=== PATIENT | male | born 1980 | race Hispanic/Latino ===

== ENCOUNTER 2017-12-06 19:40 | Inpatient (IN) | payer MEDICAID ==
[2017-12-06] MEDS ORDERED: Sodium Chloride 0.9% 1,000 ML IV STA (20:21)
[2017-12-06] MEDS ORDERED: Morphine 4 MG/ML VIAL ONE (20:49)
--- NOTE | 2017-12-06 20:53 | ED PDOC ---
Lower Extremity Pain/Injury Time Seen by Provider: 12/06/17 19:52 Chief Complaint (Nursing): GI Problem Chief Complaint (Provider): Lower Extremity Problem/Injury History Per: Patient History/Exam Limitations: no limitations Onset/Duration Of Symptoms: Days Current Symptoms Are (Timing): Still Present Additional Complaint(s): Angelito Lundy is a 37 year old male with a past medical history of PTSD who is presenting to the ED for evaluation of leg pain s/p sustaining a wound to the left leg on November 24. Patient states that he got injured by a piece of wood from an old house in [place] and presented to the ED in [facility], where he was diagnosed with a contusion. However, he reports that the pain and swelling got worse and he came to this area for a concert but presented to [facility] on December 03 due to sever leg pain. There he was diagnosed with an abscess and cellulitis, and on the he underwent surgery to drain the abscess. He adds that he was discharged today and states that while he was waiting for a homeless fdc to open, he started experiencing severe nausea, chills, shakes, and sweats, along with pins and needles all over his body. Ibrahima zaman reports that he was concerned that he was going through an opiate withdrawal as he was given Dilaudid around the clock at [facility]. He also reports increased leg pain and swelling. Denies chest pain or shortness of breath Reports last tetanus vaccine was 6 months ago PMD: none provided Past Medical History Reviewed: Historical Data, Nursing Documentation, Vital Signs Vital Signs: Last Vital Signs Temp 96.7 F L 12/06/17 19:41 Pulse 105 H 12/06/17 19:41 Resp 16 12/06/17 19:41 BP 141/81 12/06/17 19:41 Pulse Ox 100 12/06/17 19:41 - Medical History PMH: No Chronic Diseases - Surgical History Other surgeries: Abscess I&D, left ankle surgery - Family History Family History: States: Unknown Family Hx - Social History Current smoker - smoking cessation education provided: Yes Alcohol: Social Drugs: Cannabis - Home Medications Home Medications: Ambulatory Orders Medication Instructions Recorded RX: Cefdinir [Omnicef] 300 mg PO BID 12/07/17 RX: traMADol [Ultram] 50 mg PO Q6H PRN 12/07/17 Sulfamethoxazole/Trimethoprim 160 - 800 mg PO BID 12/07/17 [Bactrim DS Tab] - Allergies Allergies/Adverse Reactions: Allergies Allergy/AdvReac Type Severity Reaction Status Date / Time No Known Allergies Allergy Verified 12/06/17 19:41 Review of Systems ROS Statement: Except As Marked, All Systems Reviewed And Found Negative Constitutional: Positive for: Chills, Sweats, Other (shakes) Gastrointestinal: Positive for: Nausea Musculoskeletal: Positive for: Leg Pain (and swelling ) Neurological: Positive for: Other (pins and needles) Physical Exam - Reviewed Nursing Documentation Reviewed: Yes Vital Signs Reviewed: Yes - Physical Exam Appears: Positive for: Non-toxic, In Acute Distress (mild painful, tired appearing) Skin: Positive for: Warm, Dry ENT: Positive for: Pharynx Is (clear), Other (dry muscous membranes) Neck: Positive for: Painless ROM, Supple Cardiovascular/Chest: Positive for: Regular Rate, Rhythm. Negative for: Murmur Respiratory: Positive for: Normal Breath Sounds. Negative for: Respiratory Distress Gastrointestinal/Abdominal: Positive for: Soft. Negative for: Tenderness Back: Positive for: Normal Inspection. Negative for: Decreased ROM Extremity: Positive for: Pedal Edema, Swelling, Other (Left Lower Leg: vertical scar with interrupted sutures proximal to anterior tibia area with edema extending from proximal knee to foot: ecchymosis to ankle and foot; irregular spaced eschar, dark maroon to middle of wound; removal of iodoform gauze- wound started to moderately ooze dark red exudate, controlled with pressure) Lymphatic: Negative for: Adenopathy Neurologic/Psych: Positive for: Alert - Laboratory Results Result Diagrams: 12/07/17 09:30 12/07/17 09:30 - ECG O2 Sat by Pulse Oximetry: 100 (RA) Pulse Ox Interpretation: Normal Medical Decision Making Medical Decision Making: Time: 20:21 Impression: leg pain, s/p abscess incision and drainage secondary to traumatic wound infection Plan: --Blood Type and Screen --VBG Shock Panel --CMP --Creatine Phosphokinase --CRP --Drug Screen --CBC --Erythrocyte sedimentation --Coag --Morphine 4 mg IVP --IV Fluids --Zofran 8 mg IV --Blood Culture --X-Ray Tibia Fibula --Ultrasound Lower Extremity 22:36 Labs demonstrate leukocytosis, elevated lactic acid, and elevated ESR. Findings consistent with infection and early sepsis, Iv abx ordered. Patient to be hospitalized for further management. Discussed with Dr. Cadet, medical service. Discussed with Dr. Lay, surgical assistant certified, for Dr. Ramirez. 22:41 Lower Extremity US IMPRESSION: Findings compatible with acute DVT in the left PTV. Lovenox ordered. Scribe Attestation: Documented by Emmie Davis, acting as a scribe for Inez Prater MD. Provider Scribe Attestation: All medical record entries made by the Scribe were at my direction and personally dictated by me. I have reviewed the chart and agree that the record accurately reflects my personal performance of the history, physical exam, medi paula decision making, and the department course for this patient. I have also personally directed, reviewed, and agree with the discharge instructions and disposition. Disposition - Clinical Impression Clinical Impression: DVT (deep venous thrombosis), Infection of hematoma of wound - Disposition Disposition Time: 22:00 Condition: GUARDED - Pt Status Changed To: Hospital Disposition Of: Inpatient - Admit Certification Admit to Inpatient:: After my assessment, the patient will require hospitalization for at least two midnights. This is because of the severity of symptoms shown, intensity of services needed, and/or the medical risk in this patient being treated as an outpatient. - POA Present On Arrival: Surgical Site Infection, Deep Vein Thrombosis / PE
[2017-12-06] MEDS ORDERED: Morphine 4 MG/ML VIAL IVP STA (21:19)
[2017-12-06 21:29] LABS: VENOUS BLOOD GAS BASE EXCESS 2.2 mmol/L (0.0-2.0); VENOUS BLOOD GAS PCO2 46 mmHg (40-60); VENOUS BLOOD GAS PO2 25 mm/Hg (30-55); VENOUS BLOOD PH 7.39 (7.32-7.43)
[2017-12-06 21:33] LABS: BASO # 0.1 K/uL (0.0-0.2); BASO % 0.8 % (0.0-2.0); EOS # 0.2 K/uL (0.0-0.7); EOS % 1.6 % (0.0-4.0); HEMOGLOBIN 14.9 g/dL (12.0-18.0); LYMPH # 1.8 K/uL (1.0-4.3); LYMPH % 13.3 % (20.0-40.0); MEAN CELL VOLUME 91.8 fl (80.0-94.0); MEAN CORPUSCULAR HEMOGLOBIN 31.2 pg (27.0-31.0); MONO # 0.9 K/uL (0.0-0.8); MONO % 6.8 % (0.0-10.0); NEUT # 10.4 K/uL (1.8-7.0); NEUT % 77.5 % (50.0-75.0); RBC 4.76 Mil/uL (4.40-5.90); RED CELL DISTRIBUTION WIDTH 13.1 % (11.5-14.5); WHITE BLOOD COUNT 13.5 K/uL (4.8-10.8)
[2017-12-06 21:43] LABS: BLOOD UREA NITROGEN 17 mg/dl (9-20); CALCIUM 10.1 mg/dL (8.4-10.2); GFR NON-AFRICAN AMERICAN > 60
[2017-12-06 21:50] LABS: INR 1.1; PROTHROMBIN TIME 12.3 Seconds (9.8-13.1)
[2017-12-06 21:53] LABS: PARTIAL THROMBOPLASTIN TIME 29.1 Seconds (25.6-37.1)
[2017-12-06 21:56] LABS: ALBUMIN 4.4 g/dL (3.5-5.0); ALT/SGPT 99 U/L (21-72); AST/SGOT 71 U/L (17-59)
[2017-12-06] MEDS ORDERED: Piperacillin/Tazobact 3.375 GM in Sodium Chloride 0.9% 100 ML IVPB STA (22:26)
[2017-12-06] MEDS ORDERED: Enoxaparin 100 mg Syringe SC STA (22:53)
--- NOTE | 2017-12-06 23:28 | CP.PCM.CON ---
History of Present Illness - History of Present Illness History of Present Illness: General surgery consult note for Dr. Vicky Lay, PGY-2 Pt S & E at bedside at 2240 37M w/PMH sig for chronic migraines consulted for LLE wound infection s/p I & D (12/04). Pt reports injury to anterior aspect of LLE attempting to jump onto wooden deck on 11/24 in [place], evaluated - diagnosed with contusion. Came to [place], re-evaluated, found to have abscess, had I & D at [facility] on 12/04 with drain placement. Pt was being treated with IV Abx and pain medications, discharged to [facility] on day of evaluation with crutches after drain removed. Pt reports diaphoresis, N, F & C, increasedLLE pain, SOB, pins/needles sensation, and near syncope while at [facility]- brought into ED for evaluation. Dressing removed by ED attending with findings of sero-purulent drainage. Additionally admits to sore throat since OR, chronic vision changes, chronic ANTUNEZ, occasional CP. Denies changes in bowel or bladder habits, current N or V, chills, other complaints. In ED- LE U/S + for DVT, sero-purulent drainage from distal aspect of incision site. Afebrile, but tachycardic- 105, Leukocytosis 13.5. Thrombocytosis - 648. ESR elevated at 60. Hyperkalemic - 5.7. Tetanus vaccine 6 mos ago. 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 Review of Systems - Review of Systems All systems: reviewed and no additional remarkable complaints except - Constitutional Constitutional: Chills, Fever, Headache (chronic), Weakness - EENT Eyes: Change in Vision (chronic) Ears: Dizziness (near) Nose/Mouth/Throat: Sore Throat - Cardiovascular Cardiovascular: Chest Pain (occasional) - Gastrointestinal Gastrointestinal: absent: Abdominal Pain, Constipation, Diarrhea, Hematemesis, Hematochezia, Melena, Nausea, Vomiting - Genitourinary Genitourinary: absent: Change in Urinary Stream, Dysuria, Hematuria - Musculoskeletal Musculoskeletal: Numbness (LLE), Tingling (LLE) - Integumentary Integumentary: Wounds (draining LLE incision site) - Neurological Neurological: Weakness - Endocrine Endocrine: Fatigue Past Patient History - Past Social History Alcohol: Social Drugs: Cannabis Meds Allergies/Adverse Reactions: Allergies Allergy/AdvReac Type Severity Reaction Status Date / Time No Known Allergies Allergy Verified 12/06/17 19:41 - Medications Medications: Current Medications Vancomycin HCl 1 gm/ Sodium (Chloride) 250 mls @ 166.667 mls/hr IV STAT STA; Protocol Stop: 12/06/17 23:55 Physical Exam - Constitutional Appears: Non-toxic, No Acute Distress - Head Exam Head Exam: ATRAUMATIC, NORMAL INSPECTION, NORMOCEPHALIC - Eye Exam Eye Exam: EOMI, Normal appearance - ENT Exam ENT Exam: Mucous Membranes Moist, Normal Exam - Neck Exam Neck exam: Positive for: Full Rom, Normal Inspection - Respiratory Exam Respiratory Exam: Clear to Auscultation Bilateral, NORMAL BREATHING PATTERN. absent: Rales, Rhonchi, Wheezes, Respiratory Distress - Cardiovascular Exam Cardiovascular Exam: REGULAR RHYTHM, +S1, +S2 - GI/Abdominal Exam GI & Abdominal Exam: Normal Bowel Sounds, Soft. absent: Distended, Firm, Guarding, Tenderness - Extremities Exam Extremities exam: Positive for: tenderness (LLE). Negative for: normal inspection (8cm incision on anterior lateral aspect of left leg with freely draining sero-purulent drainage, tender to palpation, sutures in place along incision, ecchymoses on lateral aspect of medial malleous) - Neurological Exam Neurological exam: Alert, CN II-XII Intact, Oriented x3 - Psychiatric Exam Psychiatric exam: Normal Affect, Normal Mood - Skin Skin Exam: Dry, Warm Additional comments: cellulitis over incision site of left lower leg Results - Vital Signs Recent Vital Signs: Last Vital Signs Temp 96.7 F L 12/06/17 19:41 Pulse 105 H 12/06/17 19:41 Resp 16 12/06/17 19:41 BP 141/81 12/06/17 19:41 Pulse Ox 100 12/06/17 22:54 - Labs Result Diagrams: 12/06/17 21:26 12/06/17 21:26 Labs: Laboratory Results - last 24 hr 12/06/17 12/06/17 12/06/17 21:10 21:26 21:26 WBC 13.5 H RBC 4.76 Hgb 14.9 Hct 43.7 MCV 91.8 MCH 31.2 H MCHC 34.0 RDW 13.1 Plt Count 648 H MPV 7.0 L Neut % (Auto) 77.5 H Lymph % (Auto) 13.3 L Nance % (Auto) 6.8 Eos % (Auto) 1.6 Baso % (Auto) 0.8 Neut # (Auto) 10.4 H Lymph # (Auto) 1.8 Nance # (Auto) 0.9 H Eos # (Auto) 0.2 Baso # (Auto) 0.1 ESR 60 H PT INR APTT pO2 25 L VBG pH 7.39 VBG pCO2 46 VBG HCO3 25.2 VBG Total CO2 29.2 H VBG O2 Sat (Calc) 45.8 VBG Base Excess 2.2 H VBG Potassium 4.0 Sodium 136.0 139 Chloride 101.0 102 Glucose 119 H Lactate 2.1 FiO2 21.0 Potassium 5.7 H Carbon Dioxide 26 Anion Gap 17 BUN 17 Creatinine 0.8 Est GFR ( Amer) > 60 Est GFR (Non-Af Amer) > 60 Random Glucose 116 H Calcium 10.1 Total Bilirubin 0.8 AST 71 H ALT 99 H Alkaline Phosphatase 47 Total Creatine Kinase 41 L Total Protein 8.7 H Albumin 4.4 Globulin 4.2 H Albumin/Globulin Ratio 1.0 Venous Blood Potassium 4.0 12/06/17 21:26 WBC RBC Hgb Hct MCV MCH MCHC RDW Plt Count MPV Neut % (Auto) Lymph % (Auto) Nance % (Auto) Eos % (Auto) Baso % (Auto) Neut # (Auto) Lymph # (Auto) Nance # (Auto) Eos # (Auto) Baso # (Auto) ESR PT 12.3 INR 1.1 APTT 29.1 pO2 VBG pH VBG pCO2 VBG HCO3 VBG Total CO2 VBG O2 Sat (Calc) VBG Base Excess VBG Potassium Sodium Chloride Glucose Lactate FiO2 Potassium Carbon Dioxide Anion Gap BUN Creatinine Est GFR ( Amer) Est GFR (Non-Af Amer) Random Glucose Calcium Total Bilirubin AST ALT Alkaline Phosphatase Total Creatine Kinase Total Protein Albumin Globulin Albumin/Globulin Ratio Venous Blood Potassium Assessment & Plan - Assessment and Plan (Free Text) Assessment: 37M w/LLE abscess s/p I & D POD#2 freely draining Plan: Warm compresses to area Pain control IV ABx dressing care Local wound care Removed 2 sutures from distal aspect of incision DVT mgmt as per primary team No further surgical intervention at this time- wound drains freely DW Dr. James Lay, PGY-2 - Date & Time Date: 12/06/17 Time: 23:46
[2017-12-07] MEDS ORDERED: Vancomycin 1 g Inj ONE (01:14)
[2017-12-07] MEDS ORDERED: Piperacillin/Tazobact 3.375 gm Inj IVPB ONE (01:14)
--- NOTE | 2017-12-07 07:41 | CP.PCM.PN ---
Subjective - Date & Time of Evaluation Date of Evaluation: 12/07/17 Time of Evaluation: 07:39 - Subjective Subjective: General Surgery Progress Note for Dr. Ramirez 37 year old male seen and evaluated at bedside. Patient resting comfortably in bed. Left leg pain is present with ambulation. Packing and dressing changed at bedside. Denies fever, chills, nausea, vomiting, headache, dizziness, shortness of breath, chest pain, or urinary symptoms. Objective - Vital Signs/Intake and Output Vital Signs (last 24 hours): Temp Pulse Resp BP Pulse Ox 97.6 F 65 18 122/78 99 12/07/17 05:42 12/07/17 05:42 12/07/17 06:18 12/07/17 05:42 12/07/17 06:18 - Medications Medications: Current Medications Enoxaparin Sodium (Lovenox) 90 mg SC Q12 KOFFI; Protocol Piperacillin Sod/Tazobactam (Sod 3.375 gm/ Sodium Chloride) 100 mls @ 100 mls/hr IVPB Q6 KOFFI; Protocol Vancomycin HCl 1 gm/ Sodium (Chloride) 250 mls @ 166.667 mls/hr IVPB Q12 OKFFI; Protocol Morphine Sulfate (Morphine) 4 mg IVP Q4 PRN PRN Reason: Pain, severe (8-10) Ondansetron HCl (Zofran Inj) 4 mg IVP Q4 PRN PRN Reason: Nausea/Vomiting - Labs Labs: 12/06/17 21:26 12/07/17 00:05 PT 12.3 Seconds (9.8-13.1) 12/06/17 21:26 INR 1.1 12/06/17 21:26 APTT 29.1 Seconds (25.6-37.1) 12/06/17 21:26 - Constitutional Appears: Well, Non-toxic, No Acute Distress - Head Exam Head Exam: ATRAUMATIC, NORMAL INSPECTION, NORMOCEPHALIC - Respiratory Exam Respiratory Exam: Clear to Ausculation Bilateral, NORMAL BREATHING PATTERN - Cardiovascular Exam Cardiovascular Exam: REGULAR RHYTHM, +S1, +S2. absent: Murmur - Extremities Exam Extremities Exam: Calf Tenderness Additional comments: left lower extremity incision clean, dry Erythematous, tender to palpation Dressings and packing changed - Neurological Exam Neurological Exam: Alert, Awake, CN II-XII Intact, Normal Gait, Oriented x3 - Skin Skin Exam: Erythema Assessment and Plan - Assessment and Plan (Free Text) Assessment: 37M w/LLE abscess s/p I & D POD#3 freely draining Plan: Continue warm compresses Continue Pain control Continue IV ABx Continue loose packing + dressing changes 2x/day DVT mgmt as per primary team Further recommendations per Dr. James Keen PGY1
--- NOTE | 2017-12-07 08:19 | US ---
Date of service: 12/06/2017 HISTORY: leg swelling. PRIORS: None. FINDINGS: 2-D, color and duplex Doppler analysis of the lower extremity venous circulation using routine protocol from the femoral veins through the popliteal veins. Venous compressibility: Normal compressibility from the left common femoral vein to the left popliteal vein. Flow and augmentation patterns: Normal flow from the left common femoral vein to the left popliteal vein. Visualized veins upper third of calf: There is evidence of lack of flow and noncompressibility of the left posterior tibial vein consistent with thrombus. Stafford cyst: None. IMPRESSION: Lack of flow and noncompressibility of the left posterior tibial vein consistent with thrombus. This agrees with preliminary report.
--- NOTE | 2017-12-07 09:11 | CARD ---
APPROVED REPORT Date of service: 12/07/2017 EKG Measurement Heart [id number] MA 148P1 [id number] <Conclusion> Normal sinus rhythm Cannot rule out Inferior infarct, age undetermined Abnormal ECG
[2017-12-07 09:57] LABS: HEMOGLOBIN 13.9 g/dL (12.0-18.0); MEAN CELL VOLUME 91.5 fl (80.0-94.0); MEAN CORPUSCULAR HEMOGLOBIN 30.8 pg (27.0-31.0); MEAN CORPUSCULAR HGB CONC 33.6 g/dL (33.0-37.0); RBC 4.53 Mil/uL (4.40-5.90); WHITE BLOOD COUNT 9.2 K/uL (4.8-10.8)
[2017-12-07] MEDS: Piperacillin/Tazobact 3.375 GM in Sodium Chloride 0.9% 100 ML IVPB SCH ×3 (10:10→21:26)
[2017-12-07] MEDS: Morphine 4 MG/ML VIAL IVP PRN ×2 (10:24→18:44)
[2017-12-07 10:33] LABS: ALB/GLOB RATIO 1.1 (1.0-2.1); ALBUMIN 3.7 g/dL (3.5-5.0); ALT/SGPT 74 U/L (21-72); AST/SGOT 38 U/L (17-59); BLOOD UREA NITROGEN 14 mg/dl (9-20); CALCIUM 9.1 mg/dL (8.4-10.2); GFR NON-AFRICAN AMERICAN > 60; T4 10.5 ug/dl (5.5-11.0)
--- NOTE | 2017-12-07 10:48 | RAD ---
Date of service: 12/06/2017 HISTORY: wound infection COMPARISON: No prior. FINDINGS: LUNGS: No active pulmonary disease. PLEURA: No significant pleural effusion identified, no pneumothorax apparent. CARDIOVASCULAR: Normal. OSSEOUS STRUCTURES: No significant abnormalities. VISUALIZED UPPER ABDOMEN: Normal. OTHER FINDINGS: None. IMPRESSION: No active disease.
--- NOTE | 2017-12-07 10:51 | RAD ---
Date of service: 12/06/2017 PROCEDURE: Radiographs of the left tibia and fibula. HISTORY: LEFT leg pain recent abscess anterior COMPARISON: None available. TECHNIQUE: Frontal and lateral views obtained. FINDINGS: BONES: No appreciable fracture is seen. No periosteal reaction is noted. No bone destruction is seen. There is evidence of prior lower leg ORIF of the distal left tibia. Left knee is unremarkable. JOINT SPACES: Unremarkable. OTHER FINDINGS: There is nonspecific soft tissue swelling in the medial knee and proximal anterior lower leg region with a few small air bubbles identified. Finding could be related to abscess or other infectious process such as cellulitis. Gas-forming organism cannot be excluded on the images presented. IMPRESSION: No bony irregularity to suggest fracture or osteomyelitis. Nonspecific soft tissue swelling and air in the superior aspect of the left lower leg and medial aspect of the knee. Once again abscess formation and/or cellulitis with gas-forming organism cannot fully be excluded.
[2017-12-07] MEDS: Enoxaparin 100 mg Syringe SC SCH ×2 (11:37→21:25)
--- NOTE | 2017-12-07 14:48 | CP.PCM.HP ---
History of Present Illness - History of Present Illness History of Present Illness: CC: Left lower leg pain/ Abscess. 37 y/o M, PMHx Migraine,brought on 12/06/17 to [facility] for evaluation of LLE infection, associated to swelling and pain in area, pain described as constant, severe intensity 8-10: 10 with no relief. Pt sustained an I&D in [facility] on 12/04/17, 2nd to fall and contusion on 11/24/17, developing abscess in the area (as per Pt). While in [facility], Pt was Tx with abx and pain medication, discharged with crutches after drainage was removed. Worsening symptoms: On evaluation in the ER, dressing was removed and Pt was found with sero-purulent drainage from distal aspect of incision site. Also found with DVT LLE on Ext.U-S. Aggravated factor: Walking/left leg movements. Pt denied: Fever, chills, n/v/d, abdominal pain, urinary symptoms, CP, headache, SOB, cough, sick contact, recent travel out of [facility]. Left Tibia Fibula X Ray: No Fx or Osteomyelitis. Left lower leg abscess. CXR: No active disease. EKG: Normal sinus rhythm. Present on Admission - Present on Admission Any Indicators Present on Admission: Yes History of DVT/PE: Yes Review of Systems - Constitutional Constitutional: Other (negative) - EENT Eyes: Change in Vision (chronic) Ears: Other (negative) Nose/Mouth/Throat: Other (negative) - Cardiovascular Cardiovascular: Other (negative) - Respiratory Respiratory: Other (negative) - Gastrointestinal Gastrointestinal: Other (negative) - Genitourinary Genitourinary: Other (negative) - Musculoskeletal Musculoskeletal: Other (LLE pain) - Integumentary Integumentary: Wounds (LLE, draining incision site.) - Neurological Neurological: Other (negative) - Psychiatric Psychiatric: Other (negative) - Endocrine Endocrine: Other (negative) - Hematologic/Lymphatic Hematologic: Other (negative) Past Patient History - Past Medical History & Family History Past Medical History?: No Pertinent Family History: Unknown - Past Social History Smoking Status: Current Some Days Smoker Alcohol: Social Drugs: Cannabis Home Situation {Lives}: Homeless - CARDIAC Hx Cardiac Disorders: No - PULMONARY Hx Respiratory Disorders: No - NEUROLOGICAL Hx Neurological Disorder: Yes Hx Migraine: Yes - HEENT Hx HEENT Problems: No - RENAL Hx Chronic Kidney Disease: No - ENDOCRINE/METABOLIC Hx Endocrine Disorders: No - HEMATOLOGICAL/ONCOLOGICAL Hx Blood Disorders: No - INTEGUMENTARY Hx Dermatological Problems: No - MUSCULOSKELETAL/RHEUMATOLOGICAL Hx Musculoskeletal Disorders: Yes Hx Falls: Yes - GASTROINTESTINAL Hx Gastrointestinal Disorders: No - GENITOURINARY/GYNECOLOGICAL Hx Genitourinary Disorders: No - PSYCHIATRIC Hx Substance Use: Yes (marijuana) - SURGICAL HISTORY Hx Surgeries: Yes Other/Comment: left ankle surgery - ANESTHESIA Hx Anesthesia: Yes Hx Anesthesia Reactions: No Meds Allergies/Adverse Reactions: Allergies Allergy/AdvReac Type Severity Reaction Status Date / Time No Known Allergies Allergy Verified 12/06/17 19:41 Physical Exam - Constitutional Appears: No Acute Distress - Head Exam Head Exam: NORMAL INSPECTION - Eye Exam Eye Exam: PERRL - ENT Exam ENT Exam: Mucous Membranes Moist - Neck Exam Neck exam: Positive for: Normal Inspection - Respiratory Exam Respiratory Exam: Clear to Auscultation Bilateral - Cardiovascular Exam Cardiovascular Exam: REGULAR RHYTHM - GI/Abdominal Exam GI & Abdominal Exam: Normal Bowel Sounds, Soft - Extremities Exam Extremities exam: Positive for: tenderness (on palpation LLE) Additional comments: Incision on anterior lateral aspect of Left leg with sero-purulent drainage. sutures in place, ecchymosis lateral aspect of medial malleous - Back Exam Back exam: NORMAL INSPECTION - Neurological Exam Neurological exam: Alert, CN II-XII Intact, Oriented x3 - Psychiatric Exam Psychiatric exam: Normal Affect, Normal Mood - Skin Skin Exam: Warm Additional comments: See extremity. Results - Vital Signs Recent Vital Signs: Last Vital Signs Temp 97.9 F 12/07/17 12:39 Pulse 78 12/07/17 12:39 Resp 16 12/07/17 12:39 BP 145/73 12/07/17 12:39 Pulse Ox 98 12/07/17 12:39 reviewed Gil - Labs Result Diagrams: 12/07/17 09:30 12/07/17 09:30 Labs: Laboratory Results - last 24 hr 12/06/17 12/06/17 12/06/17 11:53 21:10 21:26 WBC 13.5 H RBC 4.76 Hgb 14.9 Hct 43.7 MCV 91.8 MCH 31.2 H MCHC 34.0 RDW 13.1 Plt Count 648 H MPV 7.0 L Neut % (Auto) 77.5 H Lymph % (Auto) 13.3 L [place] % (Auto) 6.8 Eos % (Auto) 1.6 Baso % (Auto) 0.8 Neut # (Auto) 10.4 H Lymph # (Auto) 1.8 [place] # (Auto) 0.9 H Eos # (Auto) 0.2 Baso # (Auto) 0.1 ESR 60 H PT INR APTT pO2 25 L VBG pH 7.39 VBG pCO2 46 VBG HCO3 25.2 VBG Total CO2 29.2 H VBG O2 Sat (Calc) 45.8 VBG Base Excess 2.2 H VBG Potassium 4.0 Sodium 136.0 Chloride 101.0 Glucose 119 H Lactate 2.1 FiO2 21.0 Potassium Carbon Dioxide Anion Gap BUN Creatinine Est GFR ( Amer) Est GFR (Non-Af Amer) Random Glucose Calcium Total Bilirubin AST ALT Alkaline Phosphatase Total Creatine Kinase Total Protein Albumin Globulin Albumin/Globulin Ratio Thyroxine (T4) TSH 3rd Generation Venous Blood Potassium 4.0 Blood Type A POSITIVE Blood Type Confirm Antibody Screen Negative BBK History Checked No verified bt 12/06/17 12/06/17 12/07/17 21:26 21:26 00:05 WBC RBC Hgb Hct MCV MCH MCHC RDW Plt Count MPV Neut % (Auto) Lymph % (Auto) [place] % (Auto) Eos % (Auto) Baso % (Auto) Neut # (Auto) Lymph # (Auto) [place] # (Auto) Eos # (Auto) Baso # (Auto) ESR PT 12.3 INR 1.1 APTT 29.1 pO2 VBG pH VBG pCO2 VBG HCO3 VBG Total CO2 VBG O2 Sat (Calc) VBG Base Excess VBG Potassium Sodium 139 Chloride 102 Glucose Lactate FiO2 Potassium 5.7 H 3.9 Carbon Dioxide 26 Anion Gap 17 BUN 17 Creatinine 0.8 Est GFR ( Amer) > 60 Est GFR (Non-Af Amer) > 60 Random Glucose 116 H Calcium 10.1 Total Bilirubin 0.8 AST 71 H ALT 99 H Alkaline Phosphatase 47 Total Creatine Kinase 41 L Total Protein 8.7 H Albumin 4.4 Globulin 4.2 H Albumin/Globulin Ratio 1.0 Thyroxine (T4) TSH 3rd Generation Venous Blood Potassium Blood Type Blood Type Confirm Antibody Screen BBK History Checked 12/07/17 12/07/1718 06:54 09:30 09:30 WBC 9.2 RBC 4.53 Hgb 13.9 Hct 41.4 MCV 91.5 MCH 30.8 MCHC 33.6 RDW 13.0 Plt Count 635 H MPV Neut % (Auto) Lymph % (Auto) [place] % (Auto) Eos % (Auto) Baso % (Auto) Neut # (Auto) Lymph # (Auto) [place] # (Auto) Eos # (Auto) Baso # (Auto) ESR PT INR APTT pO2 VBG pH VBG pCO2 VBG HCO3 VBG Total CO2 VBG O2 Sat (Calc) VBG Base Excess VBG Potassium Sodium 141 Chloride 104 Glucose Lactate FiO2 Potassium 4.1 Carbon Dioxide 27 Anion Gap 14 BUN 14 Creatinine 0.8 Est GFR ( Amer) > 60 Est GFR (Non-Af Amer) > 60 Random Glucose 109 Calcium 9.1 Total Bilirubin 0.3 AST 38 ALT 74 H D Alkaline Phosphatase 52 Total Creatine Kinase Total Protein 7.1 Albumin 3.7 Globulin 3.3 Albumin/Globulin Ratio 1.1 Thyroxine (T4) 10.5 TSH 3rd Generation 2.10 Venous Blood Potassium Blood Type Blood Type Confirm Antibody Screen BBK History Checked 12/07/17 10:09 WBC RBC Hgb Hct MCV MCH MCHC RDW Plt Count MPV Neut % (Auto) Lymph % (Auto) [place] % (Auto) Eos % (Auto) Baso % (Auto) Neut # (Auto) Lymph # (Auto) [place] # (Auto) Eos # (Auto) Baso # (Auto) ESR PT INR APTT pO2 VBG pH VBG pCO2 VBG HCO3 VBG Total CO2 VBG O2 Sat (Calc) VBG Base Excess VBG Potassium Sodium Chloride Glucose Lactate FiO2 Potassium Carbon Dioxide Anion Gap BUN Creatinine Est GFR ( Amer) Est GFR (Non-Af Amer) Random Glucose Calcium Total Bilirubin AST ALT Alkaline Phosphatase Total Creatine Kinase Total Protein Albumin Globulin Albumin/Globulin Ratio Thyroxine (T4) TSH 3rd Generation Venous Blood Potassium Blood Type Blood Type Confirm A POSITIVE Antibody Screen BBK History Checked reviewed J.P. - EKG Data EKG comments: reviewed J.P. - Imaging and Cardiology Chest x-ray Status: Report reviewed by me ([place].) Venous US Status: Report reviewed by me (J.P.) Additional comment: Tibia Fibula L X-Ray: Reviewed J.PLiborio Assessment & Plan (1) Abscess of left lower extremity Status: Acute Priority: High (2) DVT (deep venous thrombosis) Status: Acute Priority: High (3) Status post incision and drainage Status: Acute Priority: High - Assessment and Plan (Free Text) Plan: Continue Zosyn, vanco, Morphine, Lovenox and rest of Tx. Surgery consult appreciated. - Date & Time Date: 12/07/17 Time: 13:00
[2017-12-07 15:21] LABS: URINE BILIRUBIN NEGATIVE (NEGATIVE); URINE BLOOD NEGATIVE (NEGATIVE); URINE CLARITY CLEAR (Clear); URINE COLOR YELLOW (YELLOW); URINE GLUCOSE (UA) NEG (Normal); URINE LEUKOCYTE ESTERASE NEG Leu/uL (Negative); URINE PROTEIN NEGATIVE (NEGATIVE); URINE UROBILINOGEN 0.2-1.0 mg/dL (0.2-1.0)
[2017-12-08] MEDS: Morphine 4 MG/ML VIAL IVP PRN ×4 (01:53→19:36)
[2017-12-08] MEDS: Piperacillin/Tazobact 3.375 GM in Sodium Chloride 0.9% 100 ML IVPB SCH ×4 (03:58→22:10)
[2017-12-08] MEDS: Enoxaparin 100 mg Syringe SC SCH ×2 (08:42→20:46)
--- NOTE | 2017-12-08 22:28 | CP.PCM.PN ---
Subjective - Date & Time of Evaluation Date of Evaluation: 12/08/17 Time of Evaluation: 13:40 - Subjective Subjective: F/U Abscess LLE No c/o of pain, no A/D, on Morphine. Objective - Vital Signs/Intake and Output Vital Signs (last 24 hours): Temp Pulse Resp BP Pulse Ox 98.2 F 76 16 146/82 98 12/08/17 20:30 12/08/17 20:30 12/08/17 20:30 12/08/17 20:30 12/08/17 20:30 Intake and Output: 12/08/17 12/09/17 18:59 06:59 Intake Total 350 Output Total 1100 Balance -750 - Medications Medications: Current Medications Enoxaparin Sodium (Lovenox) 90 mg SC Q12 KOFFI; Protocol Last Admin: 12/08/17 20:46 Dose: 90 mg Piperacillin Sod/Tazobactam (Sod 3.375 gm/ Sodium Chloride) 100 mls @ 100 mls/hr IVPB Q6 KOFFI; Protocol Last Admin: 12/08/17 22:10 Dose: 100 mls/hr Vancomycin HCl 1 gm/ Sodium (Chloride) 250 mls @ 166.667 mls/hr IVPB Q12 KOFFI; Protocol Last Admin: 12/08/17 20:38 Dose: 166.667 mls/hr Morphine Sulfate (Morphine) 4 mg IVP Q4 PRN PRN Reason: Pain, severe (8-10) Last Admin: 12/08/17 19:36 Dose: 4 mg Ondansetron HCl (Zofran Inj) 4 mg IVP Q4 PRN PRN Reason: Nausea/Vomiting - Labs Labs: 12/07/17 09:30 12/07/17 09:30 PT 12.3 Seconds (9.8-13.1) 12/06/17 21:26 INR 1.1 12/06/17 21:26 APTT 29.1 Seconds (25.6-37.1) 12/06/17 21:26 - Constitutional Appears: No Acute Distress - Head Exam Head Exam: NORMAL INSPECTION - Eye Exam Eye Exam: PERRL - ENT Exam ENT Exam: Normal Exam - Neck Exam Neck Exam: Normal Inspection - Respiratory Exam Respiratory Exam: Clear to Ausculation Bilateral - Cardiovascular Exam Cardiovascular Exam: REGULAR RHYTHM - GI/Abdominal Exam GI & Abdominal Exam: Soft, Normal Bowel Sounds - Extremities Exam Extremities Exam: Tenderness (on palpation on LLE) Additional comments: Sero-purulent drainage L lower leg, sutures in place, ecchymosis lateral aspect of medial malleolus - Back Exam Back Exam: NORMAL INSPECTION - Neurological Exam Neurological Exam: Alert, CN II-XII Intact, Oriented x3 - Psychiatric Exam Psychiatric exam: Normal Affect, Normal Mood - Skin Skin Exam: Warm Additional comments: See extremities. Assessment and Plan (1) Abscess of left lower extremity Status: Acute (2) DVT (deep venous thrombosis) Status: Acute (3) Status post incision and drainage Status: Acute - Assessment and Plan (Free Text) Plan: Continue Zosyn, Vanco, Morphine, Lovenox ad rest of Tx.
[2017-12-09] MEDS: Piperacillin/Tazobact 3.375 GM in Sodium Chloride 0.9% 100 ML IVPB SCH ×4 (03:48→22:43)
[2017-12-09] MEDS: Morphine 4 MG/ML VIAL IVP PRN ×4 (06:20→22:48)
--- NOTE | 2017-12-09 07:37 | CP.PCM.PN ---
Subjective - Date & Time of Evaluation Date of Evaluation: 12/09/17 Time of Evaluation: 07:35 - Subjective Subjective: Surgery: Dr. Noe Pt seen and examined. No acute events overnight. Pain controlled. No complaints. Objective - Vital Signs/Intake and Output Vital Signs (last 24 hours): Temp Pulse Resp BP Pulse Ox 98.2 F 78 18 106/62 98 12/09/17 04:36 12/09/17 04:36 12/09/17 04:36 12/09/17 04:36 12/09/17 04:36 - Medications Medications: Current Medications Enoxaparin Sodium (Lovenox) 90 mg SC Q12 KOFFI; Protocol Last Admin: 12/08/17 20:46 Dose: 90 mg Piperacillin Sod/Tazobactam (Sod 3.375 gm/ Sodium Chloride) 100 mls @ 100 mls/hr IVPB Q6 KOFFI; Protocol Last Admin: 12/09/17 03:48 Dose: 100 mls/hr Vancomycin HCl 1 gm/ Sodium (Chloride) 250 mls @ 166.667 mls/hr IVPB Q12 KOFFI; Protocol Last Admin: 12/08/17 20:38 Dose: 166.667 mls/hr Morphine Sulfate (Morphine) 4 mg IVP Q4 PRN PRN Reason: Pain, severe (8-10) Last Admin: 12/09/17 06:20 Dose: 4 mg Ondansetron HCl (Zofran Inj) 4 mg IVP Q4 PRN PRN Reason: Nausea/Vomiting - Labs Labs: 12/07/17 09:30 12/07/17 09:30 PT 12.3 Seconds (9.8-13.1) 12/06/17 21:26 INR 1.1 12/06/17 21:26 APTT 29.1 Seconds (25.6-37.1) 12/06/17 21:26 - Constitutional Appears: Non-toxic, No Acute Distress - Head Exam Head Exam: ATRAUMATIC, NORMOCEPHALIC - Eye Exam Eye Exam: EOMI - ENT Exam ENT Exam: Mucous Membranes Moist - Neck Exam Neck Exam: Full ROM - Respiratory Exam Respiratory Exam: NORMAL BREATHING PATTERN. absent: Accessory Muscle Use, Respiratory Distress - GI/Abdominal Exam GI & Abdominal Exam: Soft. absent: Tenderness - Extremities Exam Additional comments: LLE s/p I&D, mildly tender, +erythema, warm to touch, no induration/fluctuance, no expressable pus - Neurological Exam Neurological Exam: Alert, Awake, Oriented x3 - Psychiatric Exam Psychiatric exam: Normal Affect, Normal Mood Assessment and Plan - Assessment and Plan (Free Text) Assessment: 37M w/LLE abscess s/p I & D POD#4 -continue with packing changes BID -c/w abx and warm compresses -dvt management per primary -will d/w attending Zemaitis PGY4
[2017-12-09] MEDS: Enoxaparin 100 mg Syringe SC SCH ×2 (09:18→22:51)
--- NOTE | 2017-12-09 10:30 | CP.PCM.PN ---
Subjective - Date & Time of Evaluation Date of Evaluation: 12/09/17 Time of Evaluation: 10:25 - Subjective Subjective: General Surgery Pt seen and examined this AM. He was also evaluated by surgical residents this AM and had his dressing changed at that time. Pt reports he continues to have pain in LLE at the site of the incision and in his calf. He does report feeling overall better. (-) chills, (-) night sweats. Afebrile. Tolerating PO. Vitals noted. Labs: none new since 12/07 PE Gen: Pt laying in bed in NAD Skin: warm and dry (see Extr) Cardio: s1s2 RRR Lungs: CTA bilaterally Abd: soft NTND Extr: LLE with iodine dressing in place, please refer to resident note in description of partially sutured incision as dressing change was done by them, surrounding skin warm to touch, (-) tenderness A/P LLE wound infection, DVT Daily drsg changes BID with loose packing soaked in iodine and saline Continue IV abx DVT management per medicine Labs ordered. Objective - Vital Signs/Intake and Output Vital Signs (last 24 hours): Temp Pulse Resp BP Pulse Ox 97.8 F 71 20 152/92 H 97 12/09/17 09:21 12/09/17 09:21 12/09/17 09:21 12/09/17 09:21 12/09/17 09:21 - Medications Medications: Current Medications Acetaminophen (Tylenol 325mg Tab) 650 mg PO Q6 PRN PRN Reason: Headache Last Admin: 12/09/17 09:49 Dose: 650 mg Enoxaparin Sodium (Lovenox) 90 mg SC Q12 KOFFI; Protocol Last Admin: 12/09/17 09:18 Dose: 90 mg Piperacillin Sod/Tazobactam (Sod 3.375 gm/ Sodium Chloride) 100 mls @ 100 mls/hr IVPB Q6 KOFFI; Protocol Last Admin: 12/09/17 09:18 Dose: 100 mls/hr Vancomycin HCl 1 gm/ Sodium (Chloride) 250 mls @ 166.667 mls/hr IVPB Q12 KOFFI; Protocol Last Admin: 12/09/17 09:17 Dose: 166.667 mls/hr Morphine Sulfate (Morphine) 4 mg IVP Q4 PRN PRN Reason: Pain, severe (8-10) Last Admin: 12/09/17 06:20 Dose: 4 mg Ondansetron HCl (Zofran Inj) 4 mg IVP Q4 PRN PRN Reason: Nausea/Vomiting - Labs Labs: 12/07/17 09:30 12/07/17 09:30 PT 12.3 Seconds (9.8-13.1) 12/06/17 21:26 INR 1.1 12/06/17 21:26 APTT 29.1 Seconds (25.6-37.1) 12/06/17 21:26
[2017-12-09 14:27] LABS: BARBITURATES, UR NEGATIVE (NEGATIVE); BENZODIAZEPINES, UR NEGATIVE (NEGATIVE); OPIATES, UR POSITIVE (NEGATIVE); PHENCYCLIDINE, UR NEGATIVE (NEGATIVE)
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
--- NOTE | 2017-12-09 20:03 | CP.PCM.PN ---
Subjective - Date & Time of Evaluation Date of Evaluation: 12/09/17 Time of Evaluation: 12:40 - Subjective Subjective: F/U Abscess LLE Pain in L leg, relief with Morphine Objective - Vital Signs/Intake and Output Vital Signs (last 24 hours): Temp Pulse Resp BP Pulse Ox 98.3 F 83 16 158/84 H 97 12/09/17 16:08 12/09/17 16:08 12/09/17 16:08 12/09/17 16:08 12/09/17 16:08 - Medications Medications: Current Medications Acetaminophen (Tylenol 325mg Tab) 650 mg PO Q6 PRN PRN Reason: Headache Last Admin: 12/09/17 09:49 Dose: 650 mg Enoxaparin Sodium (Lovenox) 90 mg SC Q12 KOFFI; Protocol Last Admin: 12/09/17 09:18 Dose: 90 mg Piperacillin Sod/Tazobactam (Sod 3.375 gm/ Sodium Chloride) 100 mls @ 100 mls/hr IVPB Q6 KOFFI; Protocol Last Admin: 12/09/17 16:43 Dose: 100 mls/hr Vancomycin HCl 1 gm/ Sodium (Chloride) 250 mls @ 166.667 mls/hr IVPB Q12 KOFFI; Protocol Last Admin: 12/09/17 09:17 Dose: 166.667 mls/hr Morphine Sulfate (Morphine) 4 mg IVP Q4 PRN PRN Reason: Pain, severe (8-10) Last Admin: 12/09/17 16:51 Dose: 4 mg Ondansetron HCl (Zofran Inj) 4 mg IVP Q4 PRN PRN Reason: Nausea/Vomiting - Labs Labs: 12/07/17 09:30 12/07/17 09:30 PT 12.3 Seconds (9.8-13.1) 12/06/17 21:26 INR 1.1 12/06/17 21:26 APTT 29.1 Seconds (25.6-37.1) 12/06/17 21:26 - Constitutional Appears: No Acute Distress - Head Exam Head Exam: NORMAL INSPECTION - Eye Exam Eye Exam: PERRL - ENT Exam ENT Exam: Normal Exam - Neck Exam Neck Exam: Normal Inspection - Respiratory Exam Respiratory Exam: Clear to Ausculation Bilateral - Cardiovascular Exam Cardiovascular Exam: REGULAR RHYTHM - GI/Abdominal Exam GI & Abdominal Exam: Soft, Normal Bowel Sounds - Extremities Exam Extremities Exam: Tenderness (on palpation LLE) Additional comments: Sero-purulent drainage LLE, dressing in place, ecchymosis lateral aspect of medial malleolus. - Back Exam Back Exam: NORMAL INSPECTION - Neurological Exam Neurological Exam: Alert, CN II-XII Intact, Oriented x3 - Psychiatric Exam Psychiatric exam: Normal Affect, Normal Mood - Skin Skin Exam: Warm Additional comments: See extremities. Assessment and Plan (1) Abscess of left lower extremity Status: Acute (2) DVT (deep venous thrombosis) Status: Acute (3) Status post incision and drainage Status: Acute - Assessment and Plan (Free Text) Plan: Continue Lovenox, Zosyn, Vanco and rest of Tx.
[2017-12-10] MEDS: Piperacillin/Tazobact 3.375 GM in Sodium Chloride 0.9% 100 ML IVPB SCH ×2 (03:51→09:17)
[2017-12-10 05:33] LABS: BASO # 0.1 K/uL (0.0-0.2); BASO % 0.8 % (0.0-2.0); EOS # 0.4 K/uL (0.0-0.7); EOS % 4.1 % (0.0-4.0); HEMOGLOBIN 13.4 g/dL (12.0-18.0); LYMPH # 1.9 K/uL (1.0-4.3); LYMPH % 21.1 % (20.0-40.0); MEAN CELL VOLUME 91.5 fl (80.0-94.0); MEAN CORPUSCULAR HGB CONC 33.9 g/dL (33.0-37.0); MEAN PLATELET VOLUME 7.1 fl (7.2-11.7); MONO # 0.7 K/uL (0.0-0.8); MONO % 8.2 % (0.0-10.0); NEUT # 5.8 K/uL (1.8-7.0); NEUT % 65.8 % (50.0-75.0); RBC 4.33 Mil/uL (4.40-5.90); RED CELL DISTRIBUTION WIDTH 12.9 % (11.5-14.5); WHITE BLOOD COUNT 8.8 K/uL (4.8-10.8)
[2017-12-10 05:40] LABS: ALB/GLOB RATIO 1.1 (1.0-2.1); ALBUMIN 3.5 g/dL (3.5-5.0); ALT/SGPT 61 U/L (21-72); AST/SGOT 35 U/L (17-59); BLOOD UREA NITROGEN 16 mg/dl (9-20); CALCIUM 8.7 mg/dL (8.4-10.2); GFR NON-AFRICAN AMERICAN > 60
[2017-12-10] MEDS: Morphine 4 MG/ML VIAL IVP PRN (05:47)
[2017-12-10] MEDS: Enoxaparin 100 mg Syringe SC SCH (08:41)
--- NOTE | 2017-12-10 10:10 | CP.PCM.PN ---
Subjective - Date & Time of Evaluation Date of Evaluation: 12/10/17 Time of Evaluation: 09:50 - Subjective Subjective: Patient was seen and examined at the bedside. States that feels much better. Objective - Vital Signs/Intake and Output Vital Signs (last 24 hours): Temp Pulse Resp BP Pulse Ox 96.0 F L 85 20 139/93 H 99 12/10/17 08:31 12/10/17 08:31 12/10/17 08:31 12/10/17 08:31 12/10/17 08:31 - Medications Medications: Current Medications Acetaminophen (Tylenol 325mg Tab) 650 mg PO Q6 PRN PRN Reason: Headache Last Admin: 12/09/17 09:49 Dose: 650 mg Piperacillin Sod/Tazobactam (Sod 3.375 gm/ Sodium Chloride) 100 mls @ 100 mls/hr IVPB Q6 KOFFI; Protocol Last Admin: 12/10/17 09:17 Dose: 100 mls/hr Vancomycin HCl 1 gm/ Sodium (Chloride) 250 mls @ 166.667 mls/hr IVPB Q12 KOFFI; Protocol Last Admin: 12/10/17 08:42 Dose: 166.667 mls/hr Morphine Sulfate (Morphine) 4 mg IVP Q4 PRN PRN Reason: Pain, severe (8-10) Last Admin: 12/10/17 05:47 Dose: 4 mg Ondansetron HCl (Zofran Inj) 4 mg IVP Q4 PRN PRN Reason: Nausea/Vomiting - Labs Labs: 12/10/17 04:15 12/10/17 04:15 PT 12.3 Seconds (9.8-13.1) 12/06/17 21:26 INR 1.1 12/06/17 21:26 APTT 29.1 Seconds (25.6-37.1) 12/06/17 21:26 - Constitutional Appears: Well, Non-toxic, No Acute Distress - Head Exam Head Exam: ATRAUMATIC, NORMAL INSPECTION, NORMOCEPHALIC - Eye Exam Eye Exam: EOMI, Normal appearance, PERRL Pupil Exam: NORMAL ACCOMODATION, PERRL - ENT Exam ENT Exam: Mucous Membranes Moist, Normal Exam - Neck Exam Neck Exam: Full ROM, Normal Inspection - Respiratory Exam Respiratory Exam: Clear to Ausculation Bilateral, NORMAL BREATHING PATTERN - Cardiovascular Exam Cardiovascular Exam: REGULAR RHYTHM, +S1, +S2 - GI/Abdominal Exam GI & Abdominal Exam: Soft, Normal Bowel Sounds Additional comments: NT, ND - Rectal Exam Rectal Exam: Deferred - Extremities Exam Extremities Exam: Full ROM Additional comments: left lower extremity wound clean, improved erythema, no drainage, some sutures in place, mildly tender to palpation - Psychiatric Exam Psychiatric exam: Normal Affect, Normal Mood - Skin Skin Exam: Dry, Intact, Normal Color, Warm Assessment and Plan - Assessment and Plan (Free Text) Assessment: 37 y.o. male with wound infection of the left lower extremity Plan: - Pain control - continue diet - Daily packing - Continue antibiotics - Out of bed - repeat labs in am - Will follow
--- NOTE | 2017-12-10 14:25 | CP.PCM.PCO ---
Assessment/Plan - Assessment and Plan (Free Text) Assessment: Patient seen and examined this morning. Vital signs stable. Labs WNL, no leukocytosis. Wound looks clean, less erythematous than yesterday. Discussed with surgical team, patient cleared to go to Psych with PO abx. Discussed with Dr Cadet who clears patient medically for psych admission Continue bactrim po, and eliquis for DVT. Discharge to psych floor this afternoon.
[2017-12-10 16:18] VITALS: BP 157/85; PULSE 84; RESP 20; TEMP 98.7; O2SAT 98
--- NOTE | 2017-12-10 17:26 | CP.PCM.DIS ---
Provider - Provider Date of Admission: 12/06/17 22:27 Attending physician: Tha Cadet MD Consults: General Surgery-Dr. Ramirez Psychiatry-Dr. Chicas Time Spent in preparation of Discharge (in minutes): 35 Diagnosis - Discharge Diagnosis (1) Abscess of left lower extremity Status: Acute Priority: High (2) DVT (deep venous thrombosis) Status: Acute Priority: High (3) Status post incision and drainage Status: Acute Priority: High Hospital Course - Lab Results Lab Results: Micro Results 12/06/17 20:30 Blood-Venous Blood Culture - Preliminary NO GROWTH AFTER 3 DAYS 12/06/17 21:10 Blood-Venous Blood Culture - Preliminary NO GROWTH AFTER 3 DAYS 12/07/17 15:00 Urine Urine Culture - Final No Growth (<1,000 CFU/ML) Most Recent Lab Values WBC 8.8 K/uL (4.8-10.8) 12/10/17 04:15 RBC 4.33 Mil/uL (4.40-5.90) L 12/10/17 04:15 Hgb 13.4 g/dL (12.0-18.0) 12/10/17 04:15 Hct 39.6 % (35.0-51.0) 12/10/17 04:15 MCV 91.5 fl (80.0-94.0) 12/10/17 04:15 MCH 31.0 pg (27.0-31.0) 12/10/17 04:15 MCHC 33.9 g/dL (33.0-37.0) 12/10/17 04:15 RDW 12.9 % (11.5-14.5) 12/10/17 04:15 Plt Count 561 K/uL (130-400) H 12/10/17 04:15 MPV 7.1 fl (7.2-11.7) L 12/10/17 04:15 Neut % (Auto) 65.8 % (50.0-75.0) 12/10/17 04:15 Lymph % (Auto) 21.1 % (20.0-40.0) 12/10/17 04:15 [place] % (Auto) 8.2 % (0.0-10.0) 12/10/17 04:15 Eos % (Auto) 4.1 % (0.0-4.0) H 12/10/17 04:15 Baso % (Auto) 0.8 % (0.0-2.0) 12/10/17 04:15 Neut # (Auto) 5.8 K/uL (1.8-7.0) 12/10/17 04:15 Lymph # (Auto) 1.9 K/uL (1.0-4.3) 12/10/17 04:15 [place] # (Auto) 0.7 K/uL (0.0-0.8) 12/10/17 04:15 Eos # (Auto) 0.4 K/uL (0.0-0.7) 12/10/17 04:15 Baso # (Auto) 0.1 K/uL (0.0-0.2) 12/10/17 04:15 ESR 60 mm/hr (0-15) H 12/06/17 21:26 PT 12.3 Seconds (9.8-13.1) 12/06/17 21:26 INR 1.1 12/06/17 21:26 APTT 29.1 Seconds (25.6-37.1) 12/06/17 21:26 pO2 25 mm/Hg (30-55) L 12/06/17 21:10 VBG pH 7.39 (7.32-7.43) 12/06/17 21:10 VBG pCO2 46 mmHg (40-60) 12/06/17 21:10 VBG HCO3 25.2 mmol/L 12/06/17 21:10 VBG Total CO2 29.2 mmol/L (22-28) H 12/06/17 21:10 VBG O2 Sat (Calc) 45.8 % (40-65) 12/06/17 21:10 VBG Base Excess 2.2 mmol/L (0.0-2.0) H 12/06/17 21:10 VBG Potassium 4.0 mmol/L (3.6-5.2) 12/06/17 21:10 Sodium 136.0 mmol/L (132-148) 12/06/17 21:10 Chloride 101.0 mmol/L (98-107) 12/06/17 21:10 Glucose 119 mg/dL (75-110) H 12/06/17 21:10 Lactate 2.1 mmol/L (0.7-2.1) 12/06/17 21:10 FiO2 21.0 % 12/06/17 21:10 Sodium 139 mmol/l (132-148) 12/10/17 04:15 Potassium 4.3 MMOL/L (3.6-5.0) 12/10/17 04:15 Chloride 106 mmol/L (98-107) 12/10/17 04:15 Carbon Dioxide 25 mmol/L (22-30) 12/10/17 04:15 Anion Gap 12 (10-20) 12/10/17 04:15 BUN 16 mg/dl (9-20) 12/10/17 04:15 Creatinine 0.8 mg/dl (0.8-1.5) 12/10/17 04:15 Est GFR ( Amer) > 60 12/10/17 04:15 Est GFR (Non-Af Amer) > 60 12/10/17 04:15 Random Glucose 96 mg/dL (75-110) 12/10/17 04:15 Calcium 8.7 mg/dL (8.4-10.2) 12/10/17 04:15 Total Bilirubin 0.4 mg/dl (0.2-1.3) 12/10/17 04:15 AST 35 U/L (17-59) 12/10/17 04:15 ALT 61 U/L (21-72) 12/10/17 04:15 Alkaline Phosphatase 48 U/L (38-126) 12/10/17 04:15 Total Creatine Kinase 41 U/L (55-170) L 12/06/17 21:26 C-Reactive Protein 28.20 mg/L (0.0-9.9) H 12/06/17 21:26 Total Protein 6.8 G/DL (6.3-8.2) 12/10/17 04:15 Albumin 3.5 g/dL (3.5-5.0) 12/10/17 04:15 Globulin 3.2 gm/dL (2.2-3.9) 12/10/17 04:15 Albumin/Globulin Ratio 1.1 (1.0-2.1) 12/10/17 04:15 Thyroxine (T4) 10.5 ug/dl (5.5-11.0) 12/07/17 09:30 TSH 3rd Generation 2.10 mIU/ML (0.46-4.68) 12/07/17 06:54 Venous Blood Potassium 4.0 mmol/L (3.6-5.2) 12/06/17 21:10 Urine Color Yellow (YELLOW) 12/07/17 15:11 Urine Clarity Clear (Clear) 12/07/17 15:11 Urine pH 7.0 (5.0-8.0) 12/07/17 15:11 Ur Specific [place] 1.013 (1.003-1.030) 12/07/17 15:11 Urine Protein Negative mg/dL (NEGATIVE) 12/07/17 15:11 Urine Glucose (UA) Neg mg/dL (Normal) 12/07/17 15:11 Urine Ketones Negative mg/dL (NEGATIVE) 12/07/17 15:11 Urine Blood Negative (NEGATIVE) 12/07/17 15:11 Urine Nitrate Negative (NEGATIVE) 12/07/17 15:11 Urine Bilirubin Negative (NEGATIVE) 12/07/17 15:11 Urine Urobilinogen 0.2-1.0 mg/dL (0.2-1.0) 12/07/17 15:11 Ur Leukocyte Esterase Neg [place] L/uL (Negative) 12/07/17 15:11 Urine RBC (Auto) 1 /hpf (0-3) 12/07/17 15:11 Urine Microscopic WBC < 1 /hpf (0-5) 12/07/17 15:11 Urine Opiates Screen Positive (NEGATIVE) H 12/09/17 13:59 Urine Methadone Screen Negative (NEGATIVE) 12/09/17 13:59 Ur Barbiturates Screen Negative (NEGATIVE) 12/09/17 13:59 Ur Phencyclidine Scrn Negative (NEGATIVE) 12/09/17 13:59 Ur Amphetamines Screen Negative (NEGATIVE) 12/09/17 13:59 U Benzodiazepines Scrn Negative (NEGATIVE) 12/09/17 13:59 U Oth Cocaine Metabols Negative (NEGATIVE) 12/09/17 13:59 U Cannabinoids Screen Positive (NEGATIVE) H 12/09/17 13:59 Blood Type A POSITIVE 12/06/17 11:53 Blood Type Confirm A POSITIVE 12/07/17 10:09 Antibody Screen Negative 12/06/17 11:53 BBK History Checked No verified bt 12/06/17 11:53 - Date & Time of H&P Date of H&P: 12/07/17 Time of H&P: 13:00 Discharge Exam - Head Exam Head Exam: ATRAUMATIC, NORMAL INSPECTION, NORMOCEPHALIC - Eye Exam Eye Exam: PERRL - ENT Exam ENT Exam: Normal Exam - Neck Exam Neck exam: Normal Inspection - Respiratory Exam Respiratory Exam: NORMAL BREATHING PATTERN - Cardiovascular Exam Cardiovascular Exam: REGULAR RHYTHM - GI/Abdominal Exam GI & Abdominal Exam: Normal Bowel Sounds, Soft - Extremities Exam Extremities exam: tenderness (on palpation LLE) Additional comments: Sero-purulent drainage LLE, dressing in place, ecchymosis lateral aspect of medial malleolus. - Back Exam Back exam: NORMAL INSPECTION - Neurological Exam Neurological exam: Alert, CN II-XII Intact, Oriented x3 - Psychiatric Exam Psychiatric exam: Normal Affect, Normal Mood - Skin Skin Exam: Warm Additional comments: See extremities Discharge Plan - Discharge Medications Prescriptions: Apixaban [Eliquis] 5 mg PO BID #60 tablet - Follow Up Plan Condition: GUARDED Disposition: HOME/ ROUTINE Patient education suggested?: Yes Additional Instructions: F/U with PMD in one week.
[2017-12-10] MEDS ORDERED: Enoxaparin 100 mg Syringe SC SCH (21:00)
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
== END 2017-12-10 16:56 | disposition home or self-care (01) | DRG 563 ==
LOC: H.ER 19:40 → H.ERHOLD 22:27 → H.TEL 12-07 05:00
PROVIDERS: ADMIT Internal Medicine Pulmonary Disease; ATTEND Internal Medicine Pulmonary Disease
DX: L08.9 Local infection of the skin and subcutaneous tissue, unspecified (principal); I82.442 Acute embolism and thrombosis of left tibial vein; E87.5 Hyperkalemia; F15.10 Other stimulant abuse, uncomplicated; L02.416 Cutaneous abscess of left lower limb; F12.90 Cannabis use, unspecified, uncomplicated; F43.10 Post-traumatic stress disorder, unspecified; L03.116 Cellulitis of left lower limb; G43.909 Migraine, unspecified, not intractable, without status migrainosus; Z59.0 Homelessness; J02.9 Acute pharyngitis, unspecified; F17.200 Nicotine dependence, unspecified, uncomplicated

== ENCOUNTER 2017-12-10 15:51 | Inpatient (IN) | payer MEDICAID ==
[2017-12-10 16:47] VITALS: BMI 28.4
[2017-12-10] MEDS ORDERED: DiphenhydrAMINE 50 mg/ml Inj IM PRN (17:06)
[2017-12-10] MEDS ORDERED: Alum-Mag Hydrox-Simethicone Susp (30 mL) PO PRN (17:06)
[2017-12-10] MEDS ORDERED: Magnesium Hydroxide Susp 30 ml UD PO PRN (17:06)
[2017-12-10 17:14] LABS: HDL CHOLESTEROL 32 MG/DL (30-70)
[2017-12-10 17:25] LABS: LDL CHOLESTEROL 102 mg/dL (0-129)
--- NOTE | 2017-12-10 18:12 | PCM.BM ---
<Richelle Thomas - Last Filed: 12/10/17 18:09> Treatment Plan Problems - Problems identified on initial assessmt Hopelessness/helplessness Date Initiated: 12/10/17 Time Initiated: 18:11 Assessment reference: NA Status: Active Problem 2 Date Initiated: 12/10/17 Time Initiated: 18:12 Assessment reference: NA Status: Active (Left leg ulcer) Treatment assets and liabiliti Patient Assests: adapts well, cooperative, motivated Patient Liabilities: physical pain, financial problems, substance abuse, medical problems - Milieu Protocol Maintain good personal hygiene: daily Encourage regular showers, daily Remind patient to perform daily oral care, daily Assist patient to perform ADL's Conduct patient checks and document Observation sheet: Q15 minutes Maintain personal safety: every shift Educate patient to report safety concerns to staff, every shift Monitor environment for contraband/sharps Medication safety: Monitor for expected outcome, potential side effects: every shift, Assess barriers to learning: every shift, Assess readiness for medication education: every shift <Delaney Vaughn - Last Filed: 12/11/17 13:56> - Diagnosis (1) Major depressive disorder with psychotic features Status: Acute Interventions: Medication management, Individual and group therapy, Psychoeducation 12/11/17 13:57 (2) PTSD (post-traumatic stress disorder) Status: Acute Interventions: Medication management, Individual and group therapy, Psychoeducation 12/11/17 13:57 <Nick Gaytan - Last Filed: 12/13/17 07:23> Family Contact Family involvement: Family/SO is involved Family contact: Patient agrees to contact, Family has been contacted by patient, Telephone contact initiated by staff Family contact name: Marcus Lundy - Brother Family contacted how many times per week?: 3 Family contact comment: Certified Physician'S Assistant spoke with pt's brother, Marcus Lundy ([phone]), to explain the complicated logistics of pt's care. Certified Physician'S Assistant explained that pt has a fairly serious infection in his leg with blood clots. Pt will need to be on anti-clotting medications for 4-6 months following discharge. Certified Physician'S Assistant petitioned brother to house pt following discharge as pt reported he wants to stay in the area and possibly reside at a homeless long-term, which scientific technical writer cautioned against. Brother reported he is going through a divorce so pt may be better residing with mother until the divorce finalizes. Also, due to pt having [place] state Medicaid pt has to be in [place] to receive benefits, so it is more helpful for pt to reside with mother in [place]. Pt's brother also wants to send pt clothing. Address provided to pt's brother. - Goals for Treatment Patient goals for treatment: Pt reported he does not like to speak to groups, so he did not feel like speaking in treatment team. Discharge/Continuing Care - Education Needs Education Needs: Family Medication, Family Diagnosis/Disease Process, Family Coping Skills, Family Anger Management skills, Family Community resources, Family Aftercare Safety Plan, Patient Medication, Patient Diagnosis/Disease Process, Patient Coping Skills, Patient Anger Management skills, Patient Community resources, Patient Aftercare Safety Plan - Discharge Discharge Criteria: Tolerates medication w/o severe side effects, Free of Suicidal thoughts, Free of paranoid thoughts, Free of agitation, Normal sleep pattern, Reduction of target symptoms Discharge to:: Home, With Family, [facility] - Treatment Team Participation Patient/Family/SO Statement: 12/13/17 07:21 Pt seen in treatment team on 12/11/17: Pt was seen in his room due to leg injury. Pt reported that he does not like speaking to groups of people and opted not to speak in team. Pt thanked staff for their care and reported he already feels better than when he was on the medical floor. Pt offered no questions or complaints at this time. Team to continue to follow pt individually. Discussed with Family/SO: Yes Was Patient/Family/SO present at Treatment Team Meeting: Yes
[2017-12-10] MEDS: Tmp-Smz 800 mg-160 mg DS Tab PO SCH (20:56)
[2017-12-10] MEDS: Enoxaparin 100 mg Syringe SC SCH (20:56)
[2017-12-11 06:45] LABS: BASO # 0.1 K/uL (0.0-0.2); BASO % 1.4 % (0.0-2.0); EOS # 0.4 K/uL (0.0-0.7); EOS % 5.7 % (0.0-4.0); HEMOGLOBIN 14.5 g/dL (12.0-18.0); LYMPH # 1.8 K/uL (1.0-4.3); LYMPH % 24.2 % (20.0-40.0); MEAN CELL VOLUME 90.2 fl (80.0-94.0); MEAN CORPUSCULAR HEMOGLOBIN 31.4 pg (27.0-31.0); MEAN CORPUSCULAR HGB CONC 34.8 g/dL (33.0-37.0); MEAN PLATELET VOLUME 7.1 fl (7.2-11.7); MONO # 0.8 K/uL (0.0-0.8); MONO % 11.4 % (0.0-10.0); NEUT # 4.2 K/uL (1.8-7.0); NEUT % 57.3 % (50.0-75.0); NRBC % 0.1 % (0.0-0.0); RBC 4.61 Mil/uL (4.40-5.90); RED CELL DISTRIBUTION WIDTH 12.7 % (11.5-14.5); WHITE BLOOD COUNT 7.4 K/uL (4.8-10.8)
[2017-12-11 06:57] LABS: ALB/GLOB RATIO 1.1 (1.0-2.1); ALBUMIN 3.9 g/dL (3.5-5.0); ALT/SGPT 104 U/L (21-72); AST/SGOT 65 U/L (17-59); BLOOD UREA NITROGEN 15 mg/dl (9-20); CALCIUM 9.7 mg/dL (8.4-10.2); GFR NON-AFRICAN AMERICAN > 60; HDL CHOLESTEROL 39 MG/DL (30-70)
[2017-12-11 07:03] LABS: LDL CHOLESTEROL 105 mg/dL (0-129)
[2017-12-11 07:07] LABS: T4 9.05 ug/dl (5.5-11.0)
[2017-12-11] MEDS: Enoxaparin 100 mg Syringe SC SCH ×2 (08:43→21:15)
[2017-12-11] MEDS: Tmp-Smz 800 mg-160 mg DS Tab PO SCH ×2 (08:43→21:12)
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
--- NOTE | 2017-12-11 09:55 | PCM.PSYCH ---
Initial Psychiatric Evaluation - Initial Psychiatric Evaluation Type of Admission: Voluntary Legal Status: Capacity Chief Complaint (in patient's own words): "I'm depressed." Patient's Reaction to Hospitalization: HPI: 37 yo male w/ h/o depression w/ psychotic features, PTSD, recently admitted to medicine for LLE wound infection s/p I & D (12/04), presents w/ worsening depression, passive suicidal wishes, sleep/appetite disturbances and auditory hallucinations of several voices, including Celeste Ulloa, Barack Obama and Constantino Trjone. 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 Current Medications: Active Medications Generic Name Dose Route Start Last Admin Trade Name Freq PRN Reason Stop Dose Admin Acetaminophen 650 mg 12/10/17 17:06 12/10/17 21:00 Tylenol 325mg Tab PO 650 mg Q4 PRN Administration Pain, Mild (1-3) Al Hydrox/Mg Hydrox/Simethicone 30 ml 12/10/17 17:06 Maalox Plus 30 Ml PO Q4 PRN Dyspepsia Diphenhydramine HCl 50 mg 12/10/17 17:06 Benadryl IM Q6 PRN Extrapyramidal S/S Unable PO Diphenhydramine HCl 50 mg 12/10/17 17:06 Benadryl PO Q6 PRN Extrapyramidal Symptoms Enoxaparin Sodium 90 mg 12/10/17 21:00 12/11/17 08:43 Lovenox SC 90 mg Q12 KOFFI Administration Protocol Haloperidol 5 mg 12/10/17 17:06 Haldol PO Q4 PRN Agitation Haloperidol Lactate 5 mg 12/10/17 17:06 Haldol IM Q4 PRN Agitation, Unable to Take PO Lorazepam 2 mg 12/10/17 17:06 Ativan IM Q4 PRN Anxiety/Agitation,Unable PO Lorazepam 2 mg 12/10/17 17:06 12/11/17 00:13 Ativan PO 2 mg Q4 PRN Administration Anxiety/Agitation Magnesium Hydroxide 30 ml 12/10/17 17:06 Milk Of Magnesia PO HS PRN Constipation Tramadol HCl 50 mg 12/10/17 17:13 12/11/17 07:11 Ultram PO 50 mg Q8 PRN Administration Pain, moderate (4-7) Trimethoprim/Sulfamethoxazole 1 tab 12/10/17 21:00 12/11/17 08:43 Bactrim Ds Tab PO 1 tab Q12 KOFFI Administration Protocol Past Psychiatric History - Past Psychiatric History Pertinent Medical Hx (Current Medical&Sleep Prob, Allergies): Allergies Allergy/AdvReac Type Severity Reaction Status Date / Time No Known Allergies Allergy Verified 12/06/17 19:41 Sulfamethoxazole/Trimethoprim [Bactrim DS Tab] 160 - 800 mg PO BID 12/07/17 traMADol [Ultram] 50 mg PO Q6H PRN 12/07/17 Apixaban [Eliquis] 5 mg PO BID #60 tablet 12/10/17 Review of Systems - Psychiatric Psychiatric: As Per HPI, Abnormal Sleep Pattern, Anhedonia, Anxiety, Change in Appetite, Depression, Difficulty Concentrating, Hopelessness, Mood Swings, Suicidal Ideation Mental Status Examination - Personal Presentation Personal Presentation: Looks stated age - Affect Affect: Constricted, Depressed - Motor Activity Motor Activity: Calm - Reliability in Providing Information Reliability in Providing Information: Good - Speech Speech: Organized, Coherent - Mood Mood: Depressed - Formal Thought Process Formal Thought Process: Hallucinations - Hallucinations/Delusions Hallucinations: Auditory - Obsessions/Compulsions Obsessions: No Compulsions: No - Cognitive Functions Orientation: Person, Place, Situation, Time Sensorium: Alert Attention/Concentration: Attentive Judgement: Intact, as evidence by: Insight regarding need for hospitalization Memory: Recent intact, as evidence by: Ability to recall events of the day, Remote intact, as evidenced by: Abilit to recall sig. life events, Remote intact, as evidenced by: Ability to recall historical events - Risk Risk: Suicidal, Diminished functioning - Strength & Assets Inventory Strength & Assets Inventory: Cooperative - Limitations Limitations: Other (Homeless) DSM 5 DX - DSM 5 DSM 5 Diagnosis: Major Depressive Disorder w/ Psychotic Features; PTSD - Recommended/Plan of Treatment Treatment Recommendations and Plan of Treatment: Major Depressive Disorder w/ Psychotic Features; PTSD -Admit to psychiatry unit -Medicine consult -Surgery consult -Obtain collateral history -Individual and group therapy -Start Effexor and Seroquel -Disposition planning Projected ELOS: 5-10 days Discharge Plan and Discharge Criteria: Discharge when patient is psychiatrically stable
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
[2017-12-12] MEDS: Enoxaparin 100 mg Syringe SC SCH ×2 (08:55→21:09)
[2017-12-12] MEDS: Tmp-Smz 800 mg-160 mg DS Tab PO SCH ×2 (08:57→21:07)
--- NOTE | 2017-12-12 10:23 | PCM.PYCHPN ---
Psychiatric Progress Note - Psychiatric Progress Note Patient seen today, length of contact: Pt evaluated, case discussed w/ team, chart reviewed Patient Chief Complaint: "I'm depressed." Problems Identified/Issues Discussed: Patient continues to report feeling depressed. He had an episode of vomiting after taking Effexor and does not want to continue taking that medication at this time. We discussed starting him on Lexapro, which he has taken in the past without adverse effects. He reports improved sleep and denies current AH. NO VH/SI/HI. Medication Change: Yes (Stop Effexor; Start Lexapro) Medical Record Reviewed: Yes Consults ordered or reviewed: Medicine, Surgery Mental Status Examination - Cognitive Function Orientation: Person, Place, Situation, Time Memory: Intact Attention: WNL Concentration: WNL Association: WNL Fund of Knowledge: WN Decription of patient's judgement and insights: Fair I/J - Mood Mood: Depressed - Affect Affect: Constricted, Depressed - Speech Speech: Appropriate - Formal Thought Process Formal Thought Process: No Impairment Psychotic Thoughts and Behaviors: Denies acute AH/VH/paranoia/delusions - Suicidal Ideation Suicidal Ideation: No - Homicidal Ideation Homicidal Ideation: No Goal/Treatment Plan - Goal/Treatment Plan Need for Continued Stay: Remain at risks for inpatient hospitalization, Severe depression anxiety Progress Toward Problem(s) and Goals/Treatment Plan: Major Depressive Disorder w/ Psychotic Features; PTSD -Medicine consult -Surgery consult -Individual and group therapy -Stop Effexor due to adverse reaction; start Lexapro -Continue Seroquel -Disposition planning Estimated Date of D/C: 12/17/17
[2017-12-13] MEDS: Tmp-Smz 800 mg-160 mg DS Tab PO SCH ×2 (08:30→21:13)
[2017-12-13] MEDS: Enoxaparin 100 mg Syringe SC SCH ×2 (08:30→21:14)
--- NOTE | 2017-12-13 12:48 | PCM.PYCHPN ---
Psychiatric Progress Note - Psychiatric Progress Note Patient seen today, length of contact: Pt evaluated, case discussed w/ team, chart reviewed Patient Chief Complaint: "I'm depressed." Problems Identified/Issues Discussed: Patient continues to report feeling depressed. He denies current AH. NO SI/HI. He denies current adverse effects to medications. Medication Change: No Medical Record Reviewed: Yes Consults ordered or reviewed: Medicine, Surgery Mental Status Examination - Cognitive Function Orientation: Person, Place, Situation, Time Memory: Intact Attention: WNL Concentration: WNL Association: WNL Fund of Knowledge: [facility] Decription of patient's judgement and insights: Fair I/J - Mood Mood: Depressed - Affect Affect: Constricted, Depressed - Speech Speech: Appropriate - Formal Thought Process Formal Thought Process: No Impairment Psychotic Thoughts and Behaviors: Denies acute AH/VH/paranoia/delusions - Suicidal Ideation Suicidal Ideation: No - Homicidal Ideation Homicidal Ideation: No Goal/Treatment Plan - Goal/Treatment Plan Need for Continued Stay: Remain at risks for inpatient hospitalization, Severe depression anxiety Progress Toward Problem(s) and Goals/Treatment Plan: Major Depressive Disorder w/ Psychotic Features; PTSD -Medicine consult -Surgery consult -Wound care consult -Individual and group therapy -Continue Lexapro -Continue Seroquel -Disposition planning Estimated Date of D/C: 12/17/17
--- NOTE | 2017-12-13 17:33 | CP.PCM.PN ---
Subjective - Date & Time of Evaluation Date of Evaluation: 12/13/17 Time of Evaluation: 13:40 - Subjective Subjective: F/U S/P I&D abscess LLE Pt awake, no A/D, pain in wound site. Objective - Vital Signs/Intake and Output Vital Signs (last 24 hours): Temp Pulse Resp BP Pulse Ox 98.2 F 92 H 18 154/91 H 12/13/17 15:39 12/13/17 15:39 12/13/17 15:39 12/13/17 15:39 - Medications Medications: Current Medications Acetaminophen (Tylenol 325mg Tab) 650 mg PO Q4 PRN PRN Reason: Pain, Mild (1-3) Last Admin: 12/12/17 21:06 Dose: 650 mg Al Hydrox/Mg Hydrox/Simethicone (Maalox Plus 30 Ml) 30 ml PO Q4 PRN PRN Reason: Dyspepsia Diphenhydramine HCl (Benadryl) 50 mg IM Q6 PRN PRN Reason: Extrapyramidal S/S Unable PO Diphenhydramine HCl (Benadryl) 50 mg PO Q6 PRN PRN Reason: Extrapyramidal Symptoms Enoxaparin Sodium (Lovenox) 90 mg SC Q12 REPLACED BY [facility]; Protocol Last Admin: 12/13/17 08:30 Dose: 90 mg Escitalopram Oxalate (Lexapro) 5 mg PO DAILY REPLACED BY [facility] Last Admin: 12/13/17 08:30 Dose: 5 mg Haloperidol (Haldol) 5 mg PO Q4 PRN PRN Reason: Agitation Haloperidol Lactate (Haldol) 5 mg IM Q4 PRN PRN Reason: Agitation, Unable to Take PO Lorazepam (Ativan) 2 mg IM Q4 PRN PRN Reason: Anxiety/Agitation,Unable PO Lorazepam (Ativan) 2 mg PO Q4 PRN PRN Reason: Anxiety/Agitation Last Admin: 12/12/17 15:19 Dose: 2 mg Magnesium Hydroxide (Milk Of Magnesia) 30 ml PO HS PRN PRN Reason: Constipation Quetiapine Fumarate (Seroquel) 100 mg PO HS [facility] Last Admin: 12/12/17 21:07 Dose: 100 mg Tramadol HCl (Ultram) 50 mg PO Q8 PRN PRN Reason: Pain, moderate (4-7) Last Admin: 12/11/17 16:10 Dose: 50 mg Trimethoprim/Sulfamethoxazole (Bactrim Ds Tab) 1 tab PO Q12 [facility]; Protocol Last Admin: 12/13/17 08:30 Dose: 1 tab - Labs Labs: 12/11/17 06:30 12/11/17 06:30 - Constitutional Appears: No Acute Distress - Head Exam Head Exam: NORMAL INSPECTION - Eye Exam Eye Exam: PERRL - ENT Exam ENT Exam: Normal Exam - Neck Exam Neck Exam: Normal Inspection - Respiratory Exam Respiratory Exam: NORMAL BREATHING PATTERN - Cardiovascular Exam Cardiovascular Exam: REGULAR RHYTHM - GI/Abdominal Exam GI & Abdominal Exam: Soft, Normal Bowel Sounds - Extremities Exam Extremities Exam: Tenderness (LLE on palpation) Additional comments: LLE open wound with dressing in place. Ecchymosis areas L inner portion of L foot - Back Exam Back Exam: NORMAL INSPECTION - Neurological Exam Neurological Exam: Alert, CN II-XII Intact, Oriented x3 - Psychiatric Exam Psychiatric exam: Depressed - Skin Skin Exam: Warm Assessment and Plan (1) Abscess of left lower extremity Status: Acute (2) Status post incision and drainage Status: Acute (3) Infection of hematoma of wound Status: Acute (4) DVT (deep venous thrombosis) Status: Acute (5) Major depressive disorder with psychotic features Status: Acute - Assessment and Plan (Free Text) Plan: Continue Bactrim, Lovenox, Ultran and rest of Tx.
[2017-12-14] MEDS: Tmp-Smz 800 mg-160 mg DS Tab PO SCH ×2 (08:16→21:17)
[2017-12-14] MEDS: Enoxaparin 100 mg Syringe SC SCH ×2 (10:47→21:17)
[2017-12-14 12:57] LABS: HEMOGLOBIN 14.1 g/dL (12.0-18.0); MEAN CELL VOLUME 91.6 fl (80.0-94.0); MEAN CORPUSCULAR HGB CONC 33.9 g/dL (33.0-37.0); RBC 4.54 Mil/uL (4.40-5.90); RED CELL DISTRIBUTION WIDTH 13.2 % (11.5-14.5); WHITE BLOOD COUNT 7.3 K/uL (4.8-10.8)
--- NOTE | 2017-12-14 13:23 | PCM.PYCHPN ---
Psychiatric Progress Note - Psychiatric Progress Note Patient seen today, length of contact: Pt evaluated, case discussed w/ team, chart reviewed Patient Chief Complaint: I am feeling better Problems Identified/Issues Discussed: pt evaluated in bed , cooperative reported better mood brighter affect, denied suicidal or homicidal ideation, denied perceptual disturbances DSM 5 Symptoms Update: PTSD Medication Change: No Medical Record Reviewed: Yes Mental Status Examination - Cognitive Function Orientation: Person, Place, Situation, Time Memory: Intact Attention: WNL Concentration: WNL Association: WNL Fund of Knowledge: WNL - Mood Mood: Depressed - Affect Affect: Constricted, Depressed - Speech Speech: Appropriate - Formal Thought Process Formal Thought Process: No Impairment - Suicidal Ideation Suicidal Ideation: No - Homicidal Ideation Homicidal Ideation: No Goal/Treatment Plan - Goal/Treatment Plan Need for Continued Stay: Remain at risks for inpatient hospitalization, Severe depression anxiety Progress Toward Problem(s) and Goals/Treatment Plan: continue current management Estimated Date of D/C: 12/17/17
--- NOTE | 2017-12-14 16:06 | CP.PCM.PN ---
Subjective - Date & Time of Evaluation Date of Evaluation: 12/14/17 Time of Evaluation: 12:10 - Subjective Subjective: F/U S/P I&D abscess LLE. Minimal pain LLE incision site. Objective - Vital Signs/Intake and Output Vital Signs (last 24 hours): Temp Pulse Resp BP Pulse Ox 98.2 F 90 20 128/64 12/14/17 15:55 12/14/17 15:55 12/14/17 15:55 12/14/17 15:55 - Medications Medications: Current Medications Acetaminophen (Tylenol 325mg Tab) 650 mg PO Q4 PRN PRN Reason: Pain, Mild (1-3) Last Admin: 12/13/17 21:16 Dose: 650 mg Al Hydrox/Mg Hydrox/Simethicone (Maalox Plus 30 Ml) 30 ml PO Q4 PRN PRN Reason: Dyspepsia Diphenhydramine HCl (Benadryl) 50 mg IM Q6 PRN PRN Reason: Extrapyramidal S/S Unable PO Diphenhydramine HCl (Benadryl) 50 mg PO Q6 PRN PRN Reason: Extrapyramidal Symptoms Enoxaparin Sodium (Lovenox) 90 mg SC Q12 [facility]; Protocol Last Admin: 12/14/17 10:47 Dose: 90 mg Escitalopram Oxalate (Lexapro) 5 mg PO DAILY [facility] Last Admin: 12/14/17 08:16 Dose: 5 mg Haloperidol (Haldol) 5 mg PO Q4 PRN PRN Reason: Agitation Haloperidol Lactate (Haldol) 5 mg IM Q4 PRN PRN Reason: Agitation, Unable to Take PO Lorazepam (Ativan) 2 mg IM Q4 PRN PRN Reason: Anxiety/Agitation,Unable PO Lorazepam (Ativan) 2 mg PO Q4 PRN PRN Reason: Anxiety/Agitation Last Admin: 12/12/17 15:19 Dose: 2 mg Magnesium Hydroxide (Milk Of Magnesia) 30 ml PO HS PRN PRN Reason: Constipation Quetiapine Fumarate (Seroquel) 100 mg PO HS [facility] Last Admin: 12/13/17 21:13 Dose: 100 mg Tramadol HCl (Ultram) 50 mg PO Q8 PRN PRN Reason: Pain, moderate (4-7) Last Admin: 12/11/17 16:10 Dose: 50 mg Trimethoprim/Sulfamethoxazole (Bactrim Ds Tab) 1 tab PO Q12 [facility]; Protocol Last Admin: 12/14/17 08:16 Dose: 1 tab - Labs Labs: 12/14/17 10:50 12/11/17 06:30 - Constitutional Appears: No Acute Distress - Head Exam Head Exam: NORMAL INSPECTION - Eye Exam Eye Exam: PERRL - ENT Exam ENT Exam: Normal Exam - Neck Exam Neck Exam: Normal Inspection - Respiratory Exam Respiratory Exam: Clear to Ausculation Bilateral - Cardiovascular Exam Cardiovascular Exam: REGULAR RHYTHM - GI/Abdominal Exam GI & Abdominal Exam: Soft, Normal Bowel Sounds - Extremities Exam Additional comments: Wound LLE with dressing in place, ecchymosis areas L inner portion of L foot. 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
[2017-12-15] MEDS: Enoxaparin 100 mg Syringe SC SCH ×2 (09:37→21:28)
[2017-12-15] MEDS: Tmp-Smz 800 mg-160 mg DS Tab PO SCH ×2 (09:37→21:27)
--- NOTE | 2017-12-15 14:01 | PCM.PYCHPN ---
Psychiatric Progress Note - Psychiatric Progress Note Patient seen today, length of contact: Pt evaluated, case discussed w/ team, chart reviewed Patient Chief Complaint: I am more healthy Problems Identified/Issues Discussed: pt evaluated in day room, interacting with other patients , cooperative reported better mood brighter affect, denied suicidal or homicidal ideation, denied perceptual disturbances DSM 5 Symptoms Update: PTSD Medication Change: No Medical Record Reviewed: Yes Mental Status Examination - Cognitive Function Orientation: Person, Place, Situation, Time Memory: Intact Attention: WNL Concentration: WNL Association: WNL Fund of Knowledge: WNL - Mood Mood: Depressed - Affect Affect: Constricted, Depressed - Speech Speech: Appropriate - Formal Thought Process Formal Thought Process: No Impairment - Suicidal Ideation Suicidal Ideation: No - Homicidal Ideation Homicidal Ideation: No Goal/Treatment Plan - Goal/Treatment Plan Need for Continued Stay: Remain at risks for inpatient hospitalization, Severe depression anxiety Progress Toward Problem(s) and Goals/Treatment Plan: continue current management Estimated Date of D/C: 12/17/17
--- NOTE | 2017-12-16 12:24 | PCM.PYCHPN ---
Psychiatric Progress Note - Psychiatric Progress Note Patient seen today, length of contact: Pt evaluated, case discussed w/ team, chart reviewed Patient Chief Complaint: "I'm depressed." Problems Identified/Issues Discussed: Patient continues to report feeling depressed and anxious w/ intermittent panic attacks. He continues to have intermittent AH, worse at night, but does not want to increase the dose of Seroquel at this time as he states that he has been hearing the voices less frequently. NO SI/HI. He denies current adverse effects to medications. Medication Change: Yes (Increase Lexapro) Medical Record Reviewed: Yes Consults ordered or reviewed: Medicine, Surgery Mental Status Examination - Cognitive Function Orientation: Person, Place, Situation, Time Memory: Intact Attention: WNL Concentration: WNL Association: WNL Fund of Knowledge: WN Decription of patient's judgement and insights: Improving I/J - Mood Mood: Depressed - Affect Affect: Constricted, Depressed - Speech Speech: Appropriate - Formal Thought Process Formal Thought Process: Hallucinations Psychotic Thoughts and Behaviors: Intermittent AH - Suicidal Ideation Suicidal Ideation: No - Homicidal Ideation Homicidal Ideation: No Goal/Treatment Plan - Goal/Treatment Plan Need for Continued Stay: Remain at risks for inpatient hospitalization, Severe depression anxiety Progress Toward Problem(s) and Goals/Treatment Plan: Major Depressive Disorder w/ Psychotic Features; PTSD -Medicine consult -Surgery consult -Wound care consult -Individual and group therapy -Increase Lexapro -Continue Seroquel -Disposition planning Estimated Date of D/C: 12/19/17
[2017-12-16] MEDS: Tmp-Smz 800 mg-160 mg DS Tab PO SCH ×2 (15:21→21:01)
--- NOTE | 2017-12-16 17:43 | CP.PCM.PN ---
Subjective - Date & Time of Evaluation Date of Evaluation: 12/16/17 Time of Evaluation: 12:00 - Subjective Subjective: F/U S/P I&D, abscess LLE Pt c/o of minimal pain LLE Objective - Vital Signs/Intake and Output Vital Signs (last 24 hours): Temp Pulse Resp BP Pulse Ox 98.1 F 84 19 139/93 H 12/16/17 16:06 12/16/17 16:06 12/16/17 16:06 12/16/17 16:06 - Medications Medications: Current Medications Acetaminophen (Tylenol 325mg Tab) 650 mg PO Q4 PRN PRN Reason: Pain, Mild (1-3) Last Admin: 12/13/17 21:16 Dose: 650 mg Al Hydrox/Mg Hydrox/Simethicone (Maalox Plus 30 Ml) 30 ml PO Q4 PRN PRN Reason: Dyspepsia Apixaban (Eliquis) 10 mg PO Q12 KOFFI; Protocol Last Admin: 12/16/17 15:21 Dose: 10 mg Diphenhydramine HCl (Benadryl) 50 mg IM Q6 PRN PRN Reason: Extrapyramidal S/S Unable PO Diphenhydramine HCl (Benadryl) 50 mg PO Q6 PRN PRN Reason: Extrapyramidal Symptoms Escitalopram Oxalate (Lexapro) 10 mg PO DAILY KOFFI Haloperidol (Haldol) 5 mg PO Q4 PRN PRN Reason: Agitation Haloperidol Lactate (Haldol) 5 mg IM Q4 PRN PRN Reason: Agitation, Unable to Take PO Lorazepam (Ativan) 2 mg IM Q4 PRN PRN Reason: Anxiety/Agitation,Unable PO Lorazepam (Ativan) 0.5 mg PO Q4 PRN PRN Reason: Anxiety Magnesium Hydroxide (Milk Of Magnesia) 30 ml PO HS PRN PRN Reason: Constipation Quetiapine Fumarate (Seroquel) 100 mg PO HS KOFFI Last Admin: 12/15/17 21:28 Dose: 100 mg Tramadol HCl (Ultram) 50 mg PO Q8 PRN PRN Reason: Pain, moderate (4-7) Last Admin: 12/11/17 16:10 Dose: 50 mg Trimethoprim/Sulfamethoxazole (Bactrim Ds Tab) 1 tab PO Q12 KOFFI; Protocol Last Admin: 10/15/18 15:21 Dose: 1 tab - Labs Labs: 12/14/17 10:50 12/11/17 06:30 - Constitutional Appears: No Acute Distress - Head Exam Head Exam: NORMAL INSPECTION - Eye Exam Eye Exam: PERRL - ENT Exam ENT Exam: Normal Exam - Neck Exam Neck Exam: Normal Inspection - Respiratory Exam Respiratory Exam: Clear to Ausculation Bilateral - Cardiovascular Exam Cardiovascular Exam: REGULAR RHYTHM - GI/Abdominal Exam GI & Abdominal Exam: Soft, Normal Bowel Sounds - Extremities Exam Additional comments: L ankle open ulcer, no draining, dressing in place. - Back Exam Back Exam: NORMAL INSPECTION, tenderness (on palpation LLE) - Neurological Exam Neurological Exam: Alert, CN II-XII Intact, Oriented x3 - Psychiatric Exam Psychiatric exam: Depressed - Skin Skin Exam: Warm Assessment and Plan (1) Abscess of left lower extremity Status: Acute (2) Status post incision and drainage Status: Acute (3) Infection of hematoma of wound Status: Acute (4) DVT (deep venous thrombosis) Status: Acute (5) Major depressive disorder with psychotic features Status: Chronic - Assessment and Plan (Free Text) Plan: Continue Bactrim DS, Eliquis and rest of Tx.
[2017-12-17] MEDS: Tmp-Smz 800 mg-160 mg DS Tab PO SCH ×2 (08:30→21:05)
--- NOTE | 2017-12-17 08:36 | PCM.PYCHPN ---
Psychiatric Progress Note - Psychiatric Progress Note Patient seen today, length of contact: Pt evaluated, case discussed w/ team, chart reviewed Patient Chief Complaint: "I'm depressed." Problems Identified/Issues Discussed: Patient continues to report feeling depressed and anxious. He denies acute AH. NO SI/HI. He denies current adverse effects to medications. Medication Change: Yes (Increase Lexapro) Medical Record Reviewed: Yes Consults ordered or reviewed: Medicine, Surgery Mental Status Examination - Cognitive Function Orientation: Person, Place, Situation, Time Memory: Intact Attention: WNL Concentration: WNL Association: WNL Fund of Knowledge: WN Decription of patient's judgement and insights: Improving I/J - Mood Mood: Depressed - Affect Affect: Constricted, Depressed - Speech Speech: Appropriate - Formal Thought Process Formal Thought Process: No Impairment Psychotic Thoughts and Behaviors: Denies acute AH - Suicidal Ideation Suicidal Ideation: No - Homicidal Ideation Homicidal Ideation: No Goal/Treatment Plan - Goal/Treatment Plan Need for Continued Stay: Remain at risks for inpatient hospitalization, Severe depression anxiety Progress Toward Problem(s) and Goals/Treatment Plan: Major Depressive Disorder w/ Psychotic Features; PTSD -Medicine consult -Surgery consult -Wound care consult -Individual and group therapy -Increase Lexapro -Continue Seroquel -Disposition planning Estimated Date of D/C: 12/19/17
[2017-12-18] MEDS: Tmp-Smz 800 mg-160 mg DS Tab PO SCH ×2 (08:47→21:06)
--- NOTE | 2017-12-18 09:27 | PCM.PYCHPN ---
Psychiatric Progress Note - Psychiatric Progress Note Patient seen today, length of contact: Pt evaluated, case discussed w/ team, chart reviewed Patient Chief Complaint: "I'm getting better." Problems Identified/Issues Discussed: Patient reports that his mood is improving. He reports that he rarely hears faint voices, no CAH, no VH/SI/HI. We discussed the importance of compliance with treatment and medications. He continues to have feelings of anxiety and coping strategies were discussed. He denies current adverse effects to medications. Medication Change: No Medical Record Reviewed: Yes Consults ordered or reviewed: Medicine, Surgery Mental Status Examination - Cognitive Function Orientation: Person, Place, Situation, Time Memory: Intact Attention: WNL Concentration: WNL Association: WNL Fund of Knowledge: [facility] Decription of patient's judgement and insights: Improving I/J - Mood Mood: Anxious - Affect Affect: Constricted - Speech Speech: Appropriate - Formal Thought Process Formal Thought Process: No Impairment Psychotic Thoughts and Behaviors: Denies acute AH/VH/paranoia/delusions - Suicidal Ideation Suicidal Ideation: No - Homicidal Ideation Homicidal Ideation: No Goal/Treatment Plan - Goal/Treatment Plan Need for Continued Stay: Severe depression anxiety Progress Toward Problem(s) and Goals/Treatment Plan: Major Depressive Disorder w/ Psychotic Features; PTSD -Medicine consult -Surgery consult -Wound care consult -Individual and group therapy -Continue Lexapro and Seroquel -Disposition planning- likely discharge tomorrow as patient is improving clinically Estimated Date of D/C: 12/19/17
[2017-12-18 16:05] VITALS: TEMP 97.2
[2017-12-19 05:38] VITALS: BP 120/73; PULSE 83; RESP 18
--- NOTE | 2017-12-19 08:18 | PCM.PYCHDC ---
Mental Status Examination - Mental Status Examination Orientation: Person, Place, Situation, Time Memory: Intact Mood: Neutral Affect: Broad Speech: Appropriate Attention: WNL Concentration: WNL Association: WNL Fund of Knowledge: WNL Formal Thought Process: No Impairment Description of patient's judgement and insight: Fair I/J Psychotic Thoughts and Behaviors: Denies acute AH/VH/paranoia/delusions Suicidal Ideation: No Current Homicidal Ideation?: No Discharge Summary - Discharge Note Reason for Hospitalization: HPI: 37 yo male w/ h/o depression w/ psychotic features, PTSD, recently admitted to medicine for LLE wound infection s/p I & D (12/04), presents w/ worsening depression, passive suicidal wishes, sleep/appetite disturbances and auditory hallucinations of several voices, including Celesteyvon Meyerton, Barack Obama and Constantino Trump. 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 Reason for request. 2. Findings. 3. Follow-up Consultations: Medicine, Surgery Summary of Hospital Course include:: 1. Description of specific treatment plan utilized for patients during their course of treatmen. 2. Summarize the time- course for resolution of acute symptoms and/or regressed behaviors. 3. Describe issues identified and worked on during hospitalization. 4. Describe medication utilized. 5. Describe medical problems identified and treated. 6. Reassessment of suicide risk Summary of Hospital Course: Patient was admitted to the psychiatry unit. Individual and group therapy were provided. Patient was stabilized on Lexapro and Seroquel. He was seen by medicine and surgery consult for his leg wound s/p I & D, treated w/ Bactrim for infection and Eliquis for DVT. He denies acute depression/anxiety/AH/VH/SI/HI/paranoia/delusions. He is psychiatrically stable at this time. Psychoeducation provided on the importance of compliance with treatment and medications. Patient to move to [place] after discharge. - Diagnosis (1) Major depressive disorder with psychotic features Current Visit: Yes Status: Chronic Priority: High (2) PTSD (post-traumatic stress disorder) Current Visit: Yes Status: Chronic - Final Diagnosis (DSM 5) Condition upon Discharge: STABLE DSM 5: Major Depressive Disorder w/ Psychotic Features; PTSD Disposition: HOME/ ROUTINE Follow-up Treatment Plan: Major Depressive Disorder w/ Psychotic Features; PTSD -Medicine consult -Surgery consult -Wound care consult -Individual and group therapy -Continue Lexapro and Seroquel Prescriptions/Medication Reconciliation: Apixaban [Eliquis] 5 mg PO Q12 #60 tab Escitalopram [Lexapro] 10 mg PO DAILY #30 tab LORazepam [Ativan] 0.5 mg PO DAILY PRN #14 tab PRN Reason: Anxiety QUEtiapine [SEROquel] 50 mg PO ASDIR #90 tab Sulfamethoxazole/Trimethoprim [Bactrim DS 800 mg-160 mg] 1 tab PO Q12 #20 tab - Smoking Cessation Smoking Cessation Medication prescribed: No Reason for not providing: Patient declined - Antipsychotic Medications Pt discharged on 2 or more routine antipsychotic medications: No
[2017-12-19] MEDS: Tmp-Smz 800 mg-160 mg DS Tab PO SCH (08:25)
--- NOTE | 2017-12-20 10:06 | PCM.BM ---
Treatment Plan Problems - Problems identified on initial assessmt Problem 2 Date Initiated: 12/10/17 Time Initiated: 18:12 Assessment reference: NA Status: Active (Left leg ulcer) Hopelessness/helplessness Date Initiated: 12/10/17 Time Initiated: 18:11 Assessment reference: NA Status: Active Treatment assets and liabiliti Patient Assests: adapts well, cooperative, motivated Patient Liabilities: physical pain, financial problems, substance abuse, medical problems - Milieu Protocol Maintain good personal hygiene: daily Encourage regular showers, daily Remind patient to perform daily oral care, daily Assist patient to perform ADL's Conduct patient checks and document Observation sheet: Q15 minutes Maintain personal safety: every shift Educate patient to report safety concerns to staff, every shift Monitor environment for contraband/sharps Medication safety: Monitor for expected outcome, potential side effects: every shift, Assess barriers to learning: every shift, Assess readiness for medication education: every shift Milieu Narrative: Major Depressive Disorder w/ Psychotic Features; PTSD -Medicine consult -Surgery consult -Wound care consult -Individual and group therapy -Continue Lexapro and Seroquel Family Contact Family involvement: Family/SO is involved Family contact: Patient agrees to contact, Family has been contacted by patient, Telephone contact initiated by staff Family contact name: Marcus Lundy - Brother Family contacted how many times per week?: 3 Family contact comment: [employer] spoke with pt's brother, Marcus Lundy ([phone]), to explain the complicated logistics of pt's care. [employer]ker explained that pt has a fairly serious infection in his leg with blood clots. Pt will need to be on anti-clotting medications for 4-6 months following discharge. [employer] petitioned brother to house pt following discharge as pt reported he wants to stay in the area and possibly reside at a homeless group home, which account underwriter cautioned against. Brother reported he is going through a divorce so pt may be better residing with mother until the divorce finalizes. Also, due to pt having [place] state Medicaid pt has to be in [place] to receive benefits, so it is more helpful for pt to reside with mother in [place]. Pt's brother also wants to send pt clothing. Address provided to pt's brother. - Goals for Treatment Patient goals for treatment: Pt reported he does not like to speak to groups, so he did not feel like speaking in treatment team. Discharge/Continuing Care - Education Needs Education Needs: Family Medication, Family Diagnosis/Disease Process, Family Coping Skills, Family Anger Management skills, Family Community resources, Family Aftercare Safety Plan, Patient Medication, Patient Diagnosis/Disease Process, Patient Coping Skills, Patient Anger Management skills, Patient Community resources, Patient Aftercare Safety Plan - Discharge Discharge Criteria: Tolerates medication w/o severe side effects, Free of Suicidal thoughts, Free of paranoid thoughts, Free of agitation, Normal sleep pattern, Reduction of target symptoms Discharge to:: Home, With Family, Long Term - Treatment Team Participation Patient/Family/SO Statement: Major Depressive Disorder w/ Psychotic Features; PTSD -Medicine consult -Surgery consult -Wound care consult -Individual and group therapy -Continue Lexapro and Seroquel Discussed with Family/SO: Yes Was Patient/Family/SO present at Treatment Team Meeting: Yes Treatment Plan Review - Problem Problem 2 Time Initiated: 18:12 Hopelessness/helplessness Time Initiated: 18:11 - Discharge / Continuing Care Discharge to:: Home, Long Term Behavioral Health Services: Outpatient therapy Health Needs: Follow up care/test, Doctor appointments, Medications/Rx (Pt was seen in treatment team for a review on 12/18/17. Pt's medical conditions and coordination with services were discussed. It was further explained that as pt has [place] Medicaid and [facility] is not an approved provider there are no services that can be offered here. Pt has plan to take a train back to [facility] and live with his mother until his leg heals. Alcohol and substance abuse were addressed with pt. Pt reported an improvement in mood and physical condition. Pt did admit to some auditory hallucinations, but reported that they are much diminished. )
== END 2017-12-19 10:40 | disposition home or self-care (01) | DRG 430 ==
LOC: H.STEP 16:48
PROVIDERS: ADMIT Psychiatry & Neurology Psychiatry; ATTEND Psychiatry & Neurology Psychiatry
PROC: GZHZZZZ Group Psychotherapy (ICD-10-PCS; principal; 2017-12-10)
PROC: GZ58ZZZ Individual Psychotherapy, Cognitive-Behavioral (ICD-10-PCS; 2017-12-10)
DX: F32.3 Major depressive disorder, single episode, severe with psychotic features (principal); L02.416 Cutaneous abscess of left lower limb; I80.8 Phlebitis and thrombophlebitis of other sites; F43.10 Post-traumatic stress disorder, unspecified; F12.90 Cannabis use, unspecified, uncomplicated; F41.0 Panic disorder [episodic paroxysmal anxiety]; G43.909 Migraine, unspecified, not intractable, without status migrainosus; Z72.0 Tobacco use; Z59.0 Homelessness